=== PATIENT | female | born 1950 | race Caucasian/White ===

== ENCOUNTER → 2017-04-29 | Outpatient (CLI) | payer MEDICARE, OTHER, SELFPAY | PROVIDERS: Visit Provider Internal Medicine Adolescent Medicine | DX: I70.213 Atherosclerosis of native arteries of extremities with intermittent claudication, bilateral legs (principal) | CPT/HCPCS: 73706; Q9967 ==

== ENCOUNTER 2017-05-06 13:11 | Emergency (ER) | payer MEDICARE, OTHER, SELFPAY | END 2017-05-06 15:50 | disposition left against medical advice (07) | PROVIDERS: Emergency Provider Emergency Medicine; Family Provider Internal Medicine Adolescent Medicine; Visit Provider Emergency Medicine | DX: Z53.29 Procedure and treatment not carried out because of patient's decision for other reasons (principal) | CPT/HCPCS: 99211; 99282 ==

== ENCOUNTER 2017-07-09 15:29 | Emergency (ER) | payer MEDICARE, OTHER, SELFPAY ==
[2017-07-09 15:37] VITALS: BP 132/90; PULSE 103; RESP 22; TEMP 37.2; O2SAT 92; BMI 31.3
--- NOTE | 2017-07-09 15:41 | HMH.EDGENADL ---
ED Disposition Clinical Impression: Community acquired pneumonia Qualifiers: Laterality: left Lung location: lower lobe of lung Qualified Code(s): J18.1 - Lobar pneumonia, unspecified organism Disposition: Home, Self-Care Condition on Discharge: Good Instructions: DI for Pneumonia -- Adult Additional Instructions: Additional instructions for PNEUMONIA: See your physician as soon as possible for further evaluation. Return immediately if you have an uncontrollable fever greater than 102 degrees, difficulty breathing or shortness of breath, persistent vomiting, or severe chest pain. Prescriptions: Benzonatate [Tessalon Perle 100mg Cap] 100 mg PO TIDP PRN #20 cap PRN Reason: Cough levoFLOXacin [Levaquin 750mg tablet] 750 mg PO DAILY #5 tab Referrals: Enzo Meng MD [Primary Care Provider] - - Critical Care Critical Care Time: No Attestation: On , the high probability of a clinically significant, sudden or life threatening deterioration of the following system(s) required my full and direct attention, intervention and personal management. The time I documented below is in addition to time spent performing reported procedures but includes the following listed in this critical care notation. Medical Decision Making Vital Signs: 07/09/17 15:37 07/09/17 16:34 Temperature 99.0 F Temperature Source Oral Pulse Rate 101 H Pulse Rate [Right Brachial] 103 H Respiratory Rate 22 Blood Pressure [Right Arm] 132/90 Blood Pressure Mean [Right Arm] 104 Blood Pressure Source [Right Arm] Automatic Cuff Blood Pressure Position [Right Arm] Sitting 02 Sat by Pulse Oximetry 92 L Oxygen Delivery Method Room Air - Lab Data Lab Results 07/09/17 15:35: Influenza Type A Ag Negative, Influenza Type B Ag Negative Orders (Tests/Meds): ED MEDICATIONS Generic Name Dose Route Start Last Admin Trade Name Freq PRN Reason Stop Dose Admin Benzonatate 100 mg 07/09/17 17:45 Tessalon Perles 100mg Capsule PO 08/08/17 17:44 ONCE MARIEL Levofloxacin 500 mg 07/09/17 17:40 Levaquin 500mg Tab PO 07/09/17 17:41 ONCE ONE Protocol Discontinued Medications Generic Name Dose Route Start Last Admin Trade Name Freq PRN Reason Stop Dose Admin Albuterol Sulfate 2.5 mg 07/09/17 16:12 07/09/17 16:30 Albuterol 0.083% 2.5mg/3ml Neb IH 07/09/17 16:13 2.5 mg ONCE ONE Administration - Radiology Data #1 Image(s): Chest Image Reviewed: Yes I have reviewed radiologist's interpretation Chronic pulmonary parenchymal changes with atelectasis left lower lobe or fibrosis with possible superimposed infiltrate. - Josh Inquiry Pt receiving controlled substance: No Josh was queried for this patient: Yes Reference #:: [id number] Comment: 40 rxs. last rx 45 oxycodone 30 mg on 07/03/17. General Adult HPI - General Stated complaint: SOA, Cough, Hurting Mode of Arrival: Wheelchair Limitations: No Limitations Description of Symptoms (Recalled from ER Triage Doc. by RN): coughing my head off for two days - History of Present Illness HPI narrative: The patient says she has been sick for 2 days with sinus and a cough which has been productive of both clear and colored sputum. Low-grade fever. Feels congested. Denies history of asthma or COPD, denies smoking or tobacco use. She is on oxygen at home due to pulmonary hypertension. History of prior pneumonia. - Related Data Previous Rx's Medication Instructions Recorded Benzonatate [Tessalon Perle 100mg 100 mg PO TIDP PRN #20 cap 07/09/17 Cap] levoFLOXacin [Levaquin 750mg 750 mg PO DAILY #5 tab 07/09/17 tablet] Allergies Allergy/AdvReac Type Severity Reaction Status Date / Time butorphanol [From STADOL] Allergy Unknown VOMITING Verified 07/09/17 16:09 nortriptyline [NORTRIPTYLINE] Allergy Unknown NA-NAUSEA Verified 07/09/17 16:09 paroxetine [From PAXIL] Allergy Unknown VOMITING Verified 07/09/17 16
--- NOTE | 2017-07-09 15:48 | XR_ITS ---
XR chest 2V HISTORY: Shortness of breath with cough ITS.REASON: COUGH ORDERING PHYSICIAN: Eb Amato MD PATIENT AGE: 66 years COMPARISON: 01/19/2017 FINDINGS: There are low lung volumes with elevated left hemidiaphragm. Chronic changes are present in the left lung base consistent with atelectasis or fibrosis. In addition, there is some slight increased density left lung base medially compared to the previous exam and may be due to an area of atelectasis or infiltrate. Mild cardiomegaly without failure. Overall no significant change with no lobar consolidation or collapse. There are multiple vertebral plasty changes in the mid thoracic spine. There are bilateral humeral prosthesis and interpedicular screws with adjoining rods in the lumbar spine. IMPRESSION: Chronic pulmonary parenchymal changes with left lower lobe atelectasis or fibrosis with possible superimposed infiltrate in the left lung base.
[2017-07-09 16:34] VITALS: PULSE 101; PULSE 102
--- NOTE | 2017-07-09 16:57 | PC.NURSE ---
Pt has a nonproductive cough. Brought here from [facility] due to them closing and not able to get a CXR according to EMS.
[2017-07-09 17:45] VITALS: BP 132/80; PULSE 75; RESP 18; TEMP 36.7; O2SAT 98
== END 2017-07-09 17:45 | disposition home or self-care (01) ==
PROVIDERS: Emergency Provider Emergency Medicine; Family Provider Internal Medicine Adolescent Medicine; PCP Internal Medicine Adolescent Medicine
DX: J18.1 Lobar pneumonia, unspecified organism (principal)
CPT/HCPCS: 71046; 87275; 87276; 99281

== ENCOUNTER 2017-07-13 12:01 | Emergency (ER) | payer MEDICARE, OTHER, SELFPAY ==
[2017-07-13 12:11] VITALS: BP 143/71; PULSE 89; RESP 16; TEMP 37; O2SAT 97; BMI 31.3
--- NOTE | 2017-07-13 13:15 | HMH.EDSOB ---
ED Disposition Clinical Impression: Nasal obstruction, Deviated nasal septum, COPD (chronic obstructive pulmonary disease), Left against medical advice Disposition: Home, Self-Care Condition on Discharge: Fair Additional Instructions: 1- saine nasal spray. 2- flonase bid in each nostril. 3- Dr Meng in AM for neb machine. 4- see Dr morocho for nasal obstruction. 5- return for labs and x ray if needed. Referrals: Enzo Meng MD [Primary Care Provider] - - Critical Care Critical Care Time: No Attestation: On 07/13/17, the high probability of a clinically significant, sudden or life threatening deterioration of the following system(s) required my full and direct attention, intervention and personal management. The time I documented below is in addition to time spent performing reported procedures but includes the following listed in this critical care notation. Medical Decision Making Vital Signs: 07/13/17 12:11 Temperature 98.6 F Temperature Source Oral Pulse Rate [Right Radial] 89 Respiratory Rate 16 Blood Pressure [Right Arm] 143/71 Blood Pressure Mean [Right Arm] 95 Blood Pressure Source [Right Arm] Automatic Cuff Blood Pressure Position [Right Arm] Sitting 02 Sat by Pulse Oximetry 97 Oxygen Delivery Method Nasal Cannula - Josh Inquiry Pt receiving controlled substance: No Josh was queried for this patient: No Medical Decision Making Narrative: Discussed with the patient the need for chest x-rays and labs she declined, stated she is already on antibiotic. By the patient for a steroid injection and breathing treatment. He accepted the breathing treatment and declined a steroid injection for fear of increasing her sugar. She will follow-up with Dr. Garcia to obtain a nebulizer machine tomorrow. Follow-up with Dr. Morocho on her next deviated septum and nasal obstruction. She was advised for saline nasal spray and increase her Flonase use to twice a day. Resp/SOB HPI - General Chief Complaint: Shortness of Breath/Dyspnea Stated Complaint: SOB Mode of Arrival: Wheelchair Limitations: Physical Limitations Description of Symptoms (Recalled from ER Triage Doc. by RN): SOA SINCE LAST ER VISIT (07/07/17). STATES SHE WAS DIAGNOSED WITH A TOUCH OF PNEUMONIA. STATES THE LEVAQUIN AND PERRLES AREN'T HELPING - History of Present Illness 66 years old white female with a history of COPD oxygen dependent for the past 2 years she uses MDI inhalers. She was seen in the ED 2 days ago diagnosed with pneumonia and given antibiotic. She presented today with a chief complaint of unable to breathe, upon further questioning she reported that she has a nasal obstruction x 3 days and she cannot get in from her nose. She is taking quinolone for her pneumonia,she denies respiratory distress. Her breathing capacity has been the same as based. She does have a deviated septum she has seen Dr. Morocho in the past, she is using Flonase once a day in each nostril, not tried saline nasal spray. He does have a humidifier box attached to her oxygen at home. She denies having fever or chills she denies having productive sputum she denies having respiratory distress. Onset (ago): day(s) (3 days.) Context: recent illness Severity: mild Consistency/Duration: constant Relieving factors: oxygen Exacerbating factors: nothing Known history of: COPD Associated symptoms: other (see HPI.) - Related Data Previous Rx's Medication Instructions Recorded Benzonatate [Tessalon Perle 100mg 100 mg PO TIDP PRN #20 cap 07/09/17 Cap] levoFLOXacin [Levaquin 750mg 750 mg PO DAILY #5 tab 07/09/17 tablet] Allergies Allergy/AdvReac Type Severity Reaction Status Date / Time butorphanol [From STADOL] Allergy Unknown VOMITING Verified 07/13/17 12:21 nortriptyline [NORTRIPTYLINE] Allergy Unknown NA-NAUSEA Verified 07/13/17 12:21 paroxetine [From PAXIL] Allergy Unknown VOMITING Verified 07/13/17 12:21 Pen
--- NOTE | 2017-07-13 13:19 | ED_ITS ---
ED Disposition Clinical Impression: Nasal obstruction, Deviated nasal septum, COPD (chronic obstructive pulmonary disease), Left against medical advice Disposition: Home, Self-Care Condition on Discharge: Fair Additional Instructions: 1- saine nasal spray. 2- flonase bid in each nostril. 3- Dr Meng in AM for neb machine. 4- see Dr morocho for nasal obstruction. 5- return for labs and x ray if needed. Referrals: Enzo Meng MD [Primary Care Provider] - - Critical Care Critical Care Time: No Attestation: On 07/13/17, the high probability of a clinically significant, sudden or life threatening deterioration of the following system(s) required my full and direct attention, intervention and personal management. The time I documented below is in addition to time spent performing reported procedures but includes the following listed in this critical care notation. Medical Decision Making Vital Signs: 07/13/17 12:11 Temperature 98.6 F Temperature Source Oral Pulse Rate [Right Radial] 89 Respiratory Rate 16 Blood Pressure [Right Arm] 143/71 Blood Pressure Mean [Right Arm] 95 Blood Pressure Source [Right Arm] Automatic Cuff Blood Pressure Position [Right Arm] Sitting 02 Sat by Pulse Oximetry 97 Oxygen Delivery Method Nasal Cannula - Josh Inquiry Pt receiving controlled substance: No Josh was queried for this patient: No Medical Decision Making Narrative: Discussed with the patient the need for chest x-rays and labs she declined, stated she is already on antibiotic. By the patient for a steroid injection and breathing treatment. He accepted the breathing treatment and declined a steroid injection for fear of increasing her sugar. She will follow-up with Dr. Garcia to obtain a nebulizer machine tomorrow. Follow-up with Dr. Morocho on her next deviated septum and nasal obstruction. She was advised for saline nasal spray and increase her Flonase use to twice a day. Resp/SOB HPI - General Chief Complaint: Shortness of Breath/Dyspnea Stated Complaint: SOB Mode of Arrival: Wheelchair Limitations: Physical Limitations Description of Symptoms (Recalled from ER Triage Doc. by RN): SOA SINCE LAST ER VISIT (07/07/17). STATES SHE WAS DIAGNOSED WITH A TOUCH OF PNEUMONIA. STATES THE LEVAQUIN AND PERRLES AREN'T HELPING - History of Present Illness 66 years old white female with a history of COPD oxygen dependent for the past 2 years she uses MDI inhalers. She was seen in the ED 2 days ago diagnosed with pneumonia and given antibiotic. She presented today with a chief complaint of unable to breathe, upon further questioning she reported that she has a nasal obstruction x 3 days and she cannot get in from her nose. She is taking quinolone for her pneumonia,she denies respiratory distress. Her breathing capacity has been the same as based. She does have a deviated septum she has seen Dr. Morocho in the past, she is using Flonase once a day in each nostril, not tried saline nasal spray. He does have a humidifier box attached to her oxygen at home. She denies having fever or chills she denies having productive sputum she denies having respiratory distress. Onset (ago): day(s) (3 days.) Context: recent illness Severity: mild Consistency/Duration: constant Relieving factors: oxygen Exacerbating factors: nothing Known history of: COPD Associated symptoms: other (see HPI.) - Related Data Pr
[2017-07-13 13:34] VITALS: BP 143/71; PULSE 89; RESP 16; TEMP 37; O2SAT 2
[2017-07-13 14:17] VITALS: PULSE 81; PULSE 85
== END 2017-07-13 13:37 | disposition home or self-care (01) ==
PROVIDERS: Emergency Provider Emergency Medicine; Family Provider Internal Medicine Adolescent Medicine; PCP Internal Medicine Adolescent Medicine
DX: J34.89 Other specified disorders of nose and nasal sinuses (principal); J18.9 Pneumonia, unspecified organism; J34.2 Deviated nasal septum; J44.9 Chronic obstructive pulmonary disease, unspecified; Z99.81 Dependence on supplemental oxygen; E11.9 Type 2 diabetes mellitus without complications; Z88.0 Allergy status to penicillin; Z88.2 Allergy status to sulfonamides; Z88.8 Allergy status to other drugs, medicaments and biological substances; Z87.891 Personal history of nicotine dependence
CPT/HCPCS: 99281

== ENCOUNTER 2017-07-23 09:31 | Emergency (ER) | payer MEDICARE, OTHER, SELFPAY ==
[2017-07-23 09:45] VITALS: BP 130/83; PULSE 92; RESP 18; TEMP 36.6; O2SAT 95; BMI 31.3
--- NOTE | 2017-07-23 09:47 | HMH.EDGENADL ---
ED Disposition Clinical Impression: Chronic thoracic back pain Qualifiers: Back pain laterality: midline Qualified Code(s): M54.6 - Pain in thoracic spine; G89.29 - Other chronic pain Disposition: Home, Self-Care Condition on Discharge: Good Instructions: DI for Thoracic Back Pain Additional Instructions: Follow-up with your pain management physician and orthopedic physician. Continue current pain management regimen. Additional instructions for BACK PAIN: See your physician as soon as possible for further evaluation. Return immediately if back pain becomes intolerable, or if fever, numbness or weakness of your legs, loss of control of your bowels or bladder. Referrals: Enzo Meng MD [Primary Care Provider] - - Critical Care Critical Care Time: No Attestation: On , the high probability of a clinically significant, sudden or life threatening deterioration of the following system(s) required my full and direct attention, intervention and personal management. The time I documented below is in addition to time spent performing reported procedures but includes the following listed in this critical care notation. Medical Decision Making - Josh Inquiry Pt receiving controlled substance: Yes Josh was queried for this patient: Yes Reference #:: [id number] Risks and benefits of using a controlled substance: were not discussed with pt by me Comment: 41 rxs. last rxs 90 oxycodone 30mg on 07/18/17, morphine sulfate on 07/15/17 Vital Signs: 07/23/17 09:45 Temperature 97.8 F Temperature Source Temporal Artery Scan Pulse Rate [Right Brachial] 92 H Respiratory Rate 18 Blood Pressure [Right Arm] 130/83 Blood Pressure Mean [Right Arm] 98 Blood Pressure Position [Right Arm] Sitting 02 Sat by Pulse Oximetry 95 Orders (Tests/Meds): ED MEDICATIONS Discontinued Medications Generic Name Dose Route Start Last Admin Trade Name Freq PRN Reason Stop Dose Admin Morphine Sulfate 10 mg 07/23/17 11:05 Morphine 2mg/2ml Syringe IM 07/23/17 11:06 ONCE ONE Ondansetron HCl 4 mg 07/23/17 11:06 Zofran 4mg/2ml Vial IM 07/23/17 11:07 ONCE ONE Medical Decision Narrative: She wants something to get her through the day. She was wondering whether we could do an MRI to see if the discs had moved again. I advised her that x-rays will not show the discs. We could do an x-ray to check her bones and orthopedic hardware, but she declines this. General Adult HPI - General Stated complaint: back pain - History of Present Illness HPI narrative: The patient is known to me from numerous previous emergency department visits. She has chronic pain. She has a morphine pump and is on oxycodone. She sees an orthopedist and a pain physician. She says that she had surgery 2 years ago and has screws in her back. She says that her back and flaring up recently, but this morning it feels worse. No specific injury. She says that she wonders if her discs have slipped out again. Her pain is in her mid back. It increases with movement. No new numbness or weakness. She says that she could not get to [place] or contact her pain management doctor, so came here for treatment. - Related Data Home Medications Medication Instructions Recorded Confirmed ARIPiprazole [Abilify] 30 mg PO DIRECTED 07/23/17 07/23/17 Atorvastatin Calcium [Lipitor 20mg 0 mg PO DIRECTED 07/23/17 07/23/17 Tablet] Cyclobenzaprine HCl [Amrix] 30 mg PO DAILY 07/23/17 07/23/17 Insulin Lispro [Humalog Kwikpen 100 unit SQ DIRECTED 07/23/17 07/23/17 U-100] Linaclotide [Linzess] 145 mcg PO DAILY 07/23/17 07/23/17 Metformin HCl [Metformin 500mg 0 mg PO DIRECTED 07/23/17 07/23/17 Tablet] Oxycodone HCl [Oxycodone (IR) 15mg 15 mg PO TID 07/23/17 07/23/17 Tab] Pantoprazole Sodium [Protonix 40mg 40 mg PO DAILY 07/23/17 07/23/17 tablet] Temazepam [Restoril 15mg capsule] 0 mg * DIRECTED 07/23/17 03
[2017-07-23 12:28] VITALS: BP 147/83; PULSE 89; RESP 18; TEMP 36.1; O2SAT 98
== END 2017-07-23 12:30 | disposition home or self-care (01) ==
PROVIDERS: Emergency Provider Emergency Medicine; Family Provider Internal Medicine Adolescent Medicine; PCP Internal Medicine Adolescent Medicine
DX: M54.6 Pain in thoracic spine (principal); G89.29 Other chronic pain; E11.9 Type 2 diabetes mellitus without complications; Z79.84 Long term (current) use of oral hypoglycemic drugs; Z79.4 Long term (current) use of insulin; Z88.0 Allergy status to penicillin; Z88.2 Allergy status to sulfonamides; Z88.6 Allergy status to analgesic agent; Z96.642 Presence of left artificial hip joint
CPT/HCPCS: 90471; 96372; 99291; J2405

== ENCOUNTER 2017-08-01 21:44 | Emergency (ER) | payer MEDICARE, OTHER, SELFPAY ==
[2017-08-01 22:23] VITALS: BP 0/0; PULSE 0; RESP 0; TEMP -17.7; TEMP 0
== END 2017-08-01 22:24 | disposition left against medical advice (07) ==
PROVIDERS: Emergency Provider Emergency Medicine; Family Provider Internal Medicine Adolescent Medicine; PCP Internal Medicine Adolescent Medicine
DX: Z53.29 Procedure and treatment not carried out because of patient's decision for other reasons (principal)
CPT/HCPCS: G0463; 99211

== ENCOUNTER 2017-08-02 19:07 | Emergency (ER) | payer MEDICARE, OTHER, SELFPAY ==
[2017-08-02 19:14] VITALS: BP 150/55; PULSE 107; RESP 18; O2SAT 98; BMI 37.5
[2017-08-02 19:58] LABS: Basophils % 0.2 % (0.1-2.0); Eosinophils # 0.2 K/mm3 (0.0-0.4); Eosinophils % 1.6 % (0.1-12.0); Hematocrit 45.3 % (37.0-47.0); Hemoglobin 14.4 g/dL (12.2-16.2); Lymphocytes % 7.9 K/mm3 (10-50); Mean Corpuscular HGB Conc 31.9 g/dL (31.8-35.4); Mean Corpuscular Volume 90.9 fl (81-99); Mean Platelet Volume 7.3 fl (7.4-10.4); Monocytes # 0.6 K/mm3 (0.1-1.0); Monocytes % 4.6 % (1.7-9.3); Neutrophils # 10.3 K/mm3 (1.8-7.8); Neutrophils % 85.6 % (37.0-80.0); Platelet Count 217 K/mm3 (142-424); Red Blood Count 4.99 M/mm3 (4.20-5.40); White Blood Count 12.1 K/mm3 (4.8-10.8)
[2017-08-02 19:59] LABS: MANUAL DIFFERENTIAL MANUAL DIFFERENTIAL (MANUAL DIFF)
[2017-08-02 20:06] LABS: Alanine Aminotransferase 20 U/L (12-78); Albumin Level 3.7 gm/dL (3.4-5.0); Albumin/Globulin Ratio 0.8 (1.1-1.8); Alkaline Phosphatase 104 U/L (46-116); Amylase 38 U/L (25-125); Anion Gap 4.4 mEq/L (5-15); Aspartate Amino Transferase 13 U/L (15-37); Bilirubin,Total 0.5 mg/dL (0.2-1.0); Blood Urea Nitrogen 9 mg/dL (7-18); Calcium 8.8 mg/dL (8.5-10.1); Chloride 92 mmol/L (98-107); Creatinine Clearance Estimated 98 mL/min (0-300); Creatinine,Serum 0.56 mg/dL (0.55-1.02); Estimated Glomerular Filt Rate 109 ml/min (>60); GFR (African American) 132 ML/MIN (>60); Globulin 4.6 gm/dl (1.3-3.2); Glucose 235 mg/dL (74-106); Lipase 71 u/L (73-393); Potassium 3.4 mmoL/L (3.5-5.1); Sodium 138 mmol/L (136-145); Total Protein,Serum 8.3 gm/dL (6.4-8.2)
[2017-08-02 20:07] LABS: Hypochromasia 2+; Lymphocytes % 8 % (10-50); Monocytes % 3 % (2-9); Neutrophils % 78 % (42-76); Platelet Estimate Normal; Total Cells Counted 100
[2017-08-02 20:10] LABS: Carbon Dioxide 45 mmol/L (21.0-32.0)
--- NOTE | 2017-08-02 21:09 | HMH.EDNVD ---
ED Disposition Clinical Impression: Gastroenteritis Disposition: Home, Self-Care Condition on Discharge: Good Instructions: DI for Nausea -- Adult Additional Instructions: fluids and see pcp for follow up Referrals: Enzo Meng MD [Primary Care Provider] - - Critical Care Critical Care Time: No Attestation: On 08/02/17, the high probability of a clinically significant, sudden or life threatening deterioration of the following system(s) required my full and direct attention, intervention and personal management. The time I documented below is in addition to time spent performing reported procedures but includes the following listed in this critical care notation. Medical Decision Making - Medical Records Medical records reviewed: Yes: I reviewed the patient's medical records. - Josh Inquiry Pt receiving controlled substance: No Vital Signs: 08/02/17 19:14 Temperature Source Oral Pulse Rate [Right Brachial] 107 H Respiratory Rate 18 Blood Pressure [Right Arm] 150/55 Blood Pressure Mean [Right Arm] 86 Blood Pressure Source [Right Arm] Automatic Cuff Blood Pressure Position [Right Arm] Sitting 02 Sat by Pulse Oximetry 98 Oxygen Delivery Method Room Air - Lab Data Lab results reviewed: Yes: I reviewed the patient's lab results. Lab Results 08/02/17 19:20: WBC 12.1 H, RBC 4.99, Hgb 14.4, Hct 45.3, MCV 90.9, MCH 29.0, MCHC 31.9, RDW 14.0, Plt Count 217, MPV 7.3 L, Neut % (Auto) 85.6 H, Lymph % (Auto) 7.9 L, [place] % (Auto) 4.6, Eos % (Auto) 1.6, Baso % (Auto) 0.2, Neut # (Auto) 10.3 H, Lymph # (Auto) 1.0, [place] # (Auto) 0.6, Eos # (Auto) 0.2, Baso # (Auto) 0.0, Total Counted 100, Neutrophils % (Manual) 78 H, Band Neutrophils % 11.0 H, Lymphocytes % (Manual) 8 L, Monocytes % (Manual) 3, Platelet Estimate Normal, Hypochromasia 2+ 08/02/17 19:20: Sodium 138, Potassium 3.4 L, Chloride 92 L, Carbon Dioxide 45 H*, Anion Gap 4.4 L, BUN 9, Creatinine 0.56, Estimated Creat Clear 98, Estimated GFR 109, Est GFR ( Amer) 132, Glucose 235 H, Calcium 8.8, Total Bilirubin 0.5, AST 13 L, ALT 20, Alkaline Phosphatase 104, Total Protein 8.3 H, Albumin 3.7, Globulin 4.6 H, Albumin/Globulin Ratio 0.8 L, Amylase 38, Lipase 71 L Result diagrams: 08/02/17 19:20 08/02/17 19:20 Orders (Tests/Meds): ED MEDICATIONS Discontinued Medications Generic Name Dose Route Start Last Admin Trade Name Freq PRN Reason Stop Dose Admin Sodium Chloride 1,000 mls @ 999 mls/hr 08/02/17 19:45 08/02/17 19:49 Sod Chlor 0.9% 1000ml Bag IV 08/02/17 20:45 999 mls/hr .Q1H1M MARIEL Administration Ondansetron HCl 4 mg 08/02/17 19:43 08/02/17 19:49 Zofran 4mg/2ml Vial IV 08/02/17 19:44 4 mg ONCE ONE Administration Nausea/Vomiting/Diarrhea HPI - General Chief complaint: Nausea/Vomiting/Diarrhea Stated complaint: Vomiting Time Seen by Provider: 08/02/17 21:09 Mode of Arrival: Wheelchair Source of Information: Patient, Spouse, Medical Record Limitations: No Limitations Description of Symptoms (Recalled from ER Triage Doc. by RN): PT STATES SUDDEN ONSET OF PAIN TO BELLY AND VOMITING - History of Present Illness HPI Narrative: pt with vomiting and nausea with diarrhea w/o fever or blood and no recent abx or contacts MD complaint: nausea, vomiting, diarrhea Onset (ago): hour(s) Associated Abdominal Pain: Yes Location of pain: epigastric Severity: moderate - Related Data Home Medications Medication Instructions Recorded Confirmed ARIPiprazole [Abilify] 30 mg PO DIRECTED 07/23/17 07/23/17 Atorvastatin Calcium [Lipitor 20mg 0 mg PO DIRECTED 07/23/17 07/23/17 Tablet] Cyclobenzaprine HCl [Amrix] 30 mg PO DAILY 07/23/17 07/23/17 Insulin Lispro [Humalog Kwikpen 100 unit SQ DIRECTED 07/23/17 07/23/17 U-100] Linaclotide [Linzess] 145 mcg PO DAILY 07/23/17 07/23/17 Metformin HCl [Metformin 500mg 0 mg PO DIRECTED 07/23/17 07/23/17 Tablet] Oxycodone HCl [Oxycodone (IR) 15mg 15 m
--- NOTE | 2017-08-02 21:12 | ED_ITS ---
ED Disposition Clinical Impression: Gastroenteritis Disposition: Home, Self-Care Condition on Discharge: Good Instructions: DI for Nausea -- Adult Additional Instructions: fluids and see pcp for follow up Referrals: Enzo Meng MD [Primary Care Provider] - - Critical Care Critical Care Time: No Attestation: On 08/02/17, the high probability of a clinically significant, sudden or life threatening deterioration of the following system(s) required my full and direct attention, intervention and personal management. The time I documented below is in addition to time spent performing reported procedures but includes the following listed in this critical care notation. Medical Decision Making - Medical Records Medical records reviewed: Yes: I reviewed the patient's medical records. - Josh Inquiry Pt receiving controlled substance: No Vital Signs: 08/02/17 19:14 Temperature Source Oral Pulse Rate [Right Brachial] 107 H Respiratory Rate 18 Blood Pressure [Right Arm] 150/55 Blood Pressure Mean [Right Arm] 86 Blood Pressure Source [Right Arm] Automatic Cuff Blood Pressure Position [Right Arm] Sitting 02 Sat by Pulse Oximetry 98 Oxygen Delivery Method Room Air - Lab Data Lab results reviewed: Yes: I reviewed the patient's lab results. Lab Results 08/02/17 19:20: WBC 12.1 H, RBC 4.99, Hgb 14.4, Hct 45.3, MCV 90.9, MCH 29.0, MCHC 31.9, RDW 14.0, Plt Count 217, MPV 7.3 L, Neut % (Auto) 85.6 H, Lymph % ( Auto) 7.9 L, [place] % (Auto) 4.6, Eos % (Auto) 1.6, Baso % (Auto) 0.2, Neut # ( Auto) 10.3 H, Lymph # (Auto) 1.0, [place] # (Auto) 0.6, Eos # (Auto) 0.2, Baso # ( Auto) 0.0, Total Counted 100, Neutrophils % (Manual) 78 H, Band Neutrophils % 11.0 H, Lymphocytes % (Manual) 8 L, Monocytes % (Manual) 3, Platelet Estimate Normal, Hypochromasia 2+ 08/02/17 19:20: Sodium 138, Potassium 3.4 L, Chloride 92 L, Carbon Dioxide 45 H* , Anion Gap 4.4 L, BUN 9, Creatinine 0.56, Estimated Creat Clear 98, Estimated GFR 109, Est GFR ( Amer) 132, Glucose 235 H, Calcium 8.8, Total Bilirubin 0.5, AST 13 L, ALT 20, Alkaline Phosphatase 104, Total Protein 8.3 H, Albumin 3.7, Globulin 4.6 H, Albumin/Globulin Ratio 0.8 L, Amylase 38, Lipase 71 L Result diagrams: 08/02/17 19:20 08/02/17 19:20 Orders (Tests/Meds): ED MEDICATIONS Discontinued Medications Generic Name Dose Route Start Last Admin Trade Name Freq PRN Reason Stop Dose Admin Sodium Chloride 1,000 mls @ 999 mls/hr 08/02/17 19:45 08/02/17 19:49 Sod Chlor 0.9% 1000ml Bag IV 08/02/17 20:45 999 mls/hr .Q1H1M MARIEL Administration Ondansetron HCl 4 mg 08/02/17 19:43 08/02/17 19:49 Zofran 4mg/2ml Vial IV 08/02/17 19:44 4 mg ONCE ONE Administration Nausea/Vomiting/Diarrhea HPI - General Chief complaint: Nausea/Vomiting/Diarrhea Stated complaint: Vomiting Time Seen by Provider: 08/02/17 21:09 Mode of Arrival: Wheelchair Source of Information: Patient, Spouse, Medical Record Limitations: No Limitations Description of Symptoms (Recalled from ER Triage Doc. by RN): PT STATES SUDDEN ONSET OF PAIN TO BELLY AND VOMITING - History of Present Illness HPI Narrative: pt with vomiting and nausea with diarrhea w/o fever or blood and no recent abx or contacts MD complaint: nausea, vomiting, diarrhea Onset (ago): hour(s) Associated Abdominal Pain: Yes Locati
[2017-08-02 21:22] VITALS: BP 148/70; PULSE 80; RESP 18; TEMP 37; O2SAT 98
== END 2017-08-02 21:23 | disposition home or self-care (01) ==
PROVIDERS: Emergency Provider Emergency Medicine; Family Provider Internal Medicine Adolescent Medicine; PCP Internal Medicine Adolescent Medicine
DX: K52.9 Noninfective gastroenteritis and colitis, unspecified (principal); E11.9 Type 2 diabetes mellitus without complications; Z79.899 Other long term (current) drug therapy; Z79.4 Long term (current) use of insulin; Z79.891 Long term (current) use of opiate analgesic; Z88.0 Allergy status to penicillin; Z88.2 Allergy status to sulfonamides; Z88.8 Allergy status to other drugs, medicaments and biological substances; Z91.09 Other allergy status, other than to drugs and biological substances
CPT/HCPCS: 80053; 82150; 83690; 85007; 85025; 96365; 96375; 99282; J2405

== ENCOUNTER → 2017-08-08 14:31 | Outpatient (CLI) | payer MEDICARE, OTHER, SELFPAY ==
[2017-08-08 14:37] LABS: Microscopic, Urine URINE MICROSCOPIC (MICROSCOPIC)
--- NOTE | 2017-08-08 15:01 | XR_ITS ---
XR chest 2V HISTORY: ITS.REASON: CHEST PAIN ORDERING PHYSICIAN: Kendrick Britt PATIENT AGE: 66 years COMPARISON: 07/09/2017 FINDINGS: There are low lung volumes. There is cardiomegaly. There are multiple levels of vertebroplasty as before. Previously noted infiltrate in the left lower lobe has shown some improvement but there is increasing atelectatic change in the left lower lobe. Atelectasis is also increasing in the right lung base. There are bilateral shoulder replacements. IMPRESSION: Increasing bibasilar atelectasis. Left lower lobe pneumonia has shown some improvement. Cardiomegaly without failure
[2017-08-08 15:05] LABS: Activated Partial Thrombo Time 27.8 seconds (23.6-34.0); INR 0.95 (0.9-1.1); Prothrombin Time 10.3 seconds (9.4-11.8)
[2017-08-08 15:09] LABS: Alanine Aminotransferase 17 U/L (12-78); Albumin Level 3.2 gm/dL (3.4-5.0); Albumin/Globulin Ratio 0.8 (1.1-1.8); Alkaline Phosphatase 91 U/L (46-116); Anion Gap 5.7 mEq/L (5-15); Aspartate Amino Transferase 10 U/L (15-37); Bilirubin,Total 0.3 mg/dL (0.2-1.0); Blood Urea Nitrogen 9 mg/dL (7-18); Calcium 8.6 mg/dL (8.5-10.1); Chloride 96 mmol/L (98-107); Creatinine,Serum 0.55 mg/dL (0.55-1.02); Estimated Glomerular Filt Rate 111 ml/min (>60); GFR (African American) 135 ML/MIN (>60); Globulin 4.1 gm/dl (1.3-3.2); Glucose 368 mg/dL (74-106); Potassium 4.7 mmoL/L (3.5-5.1); Sodium 139 mmol/L (136-145); Total Protein,Serum 7.3 gm/dL (6.4-8.2)
[2017-08-08 15:19] LABS: Carbon Dioxide 42 mmol/L (21.0-32.0)
[2017-08-08 15:38] LABS: Basophils % 0.2 % (0.1-2.0); Eosinophils # 0.2 K/mm3 (0.0-0.4); Hematocrit 40.3 % (37.0-47.0); Hemoglobin 12.1 g/dL (12.2-16.2); Lymphocytes # 0.9 K/mm3 (0.7-4.5); Lymphocytes % 14.4 K/mm3 (10-50); Mean Corpuscular HGB Conc 30.1 g/dL (31.8-35.4); Mean Corpuscular Hemoglobin 28.3 pg (27.0-31.2); Mean Corpuscular Volume 94.1 fl (81-99); Mean Platelet Volume 7.7 fl (7.4-10.4); Monocytes # 0.3 K/mm3 (0.1-1.0); Monocytes % 5.2 % (1.7-9.3); Neutrophils # 4.8 K/mm3 (1.8-7.8); Neutrophils % 77.1 % (37.0-80.0); Platelet Count 222 K/mm3 (142-424); Red Blood Count 4.28 M/mm3 (4.20-5.40); Red Cell Distribution Width 14.2 % (11.5-17.5); White Blood Count 6.2 K/mm3 (4.8-10.8)
[2017-08-08 15:40] LABS: Appearance,Urine CLEAR (Clear); Bilirubin,Urine Negative (Negative); Blood, Urine Negative (Negative); Color,Urine YELLOW (Yellow); Glucose,Urine (UA) 2+ (Negative); Ketones,Urine Negative (Negative); Leukocyte Esterase,Urine Negative (Negative); Nitrate,Urine Negative (Negative); Protein,Urine Negative (Negative); Urobilinogen,Urine 0.2 EU/dl (0.2)
[2017-08-08 16:24] LABS: Bacteria,Urine 1+ /lpf; RBC,Urine Occasional #/hpf (0-3); Squamous Epithelial Cell,Urine 20-50 #/hpf (0-5)
== END ==
PROVIDERS: Visit Provider Orthopaedic Surgery
DX: R79.1 Abnormal coagulation profile (principal); R68.89 Other general symptoms and signs; R79.89 Other specified abnormal findings of blood chemistry; R82.90 Unspecified abnormal findings in urine; R07.9 Chest pain, unspecified; Z01.818 Encounter for other preprocedural examination
CPT/HCPCS: 36415; 71046; 80053; 81001; 85025; 85610; 85730; 93005

== ENCOUNTER → 2017-08-15 14:51 | Outpatient (CLI) | payer MEDICARE, OTHER, SELFPAY ==
[2017-08-15 15:19] LABS: Blood Urea Nitrogen 10 mg/dL (7-18); Creatinine,Serum 0.43 mg/dL (0.55-1.02); Estimated Glomerular Filt Rate 148 ml/min (>60); GFR (African American) 179 ML/MIN (>60)
== END ==
PROVIDERS: Visit Provider Internal Medicine Adolescent Medicine
DX: Z01.818 Encounter for other preprocedural examination (principal)
CPT/HCPCS: 36415; 82565; 84520

== ENCOUNTER → 2017-08-21 09:05 | Outpatient (CLI) | payer MEDICARE, OTHER, SELFPAY ==
--- NOTE | 2017-08-21 09:17 | CT_ITS ---
CT chest w con HISTORY: ITS.REASON: CHRONIC PNEUMONIA,COUGH ORDERING PHYSICIAN: Clau Rangel PATIENT AGE: 66 years TECHNIQUE: Axial images obtained following the administration of 75 mL of Isovue 370 . Sagittal, and coronal reformatted images are also generated and reviewed. All CT scans at the facility use one or more dose reduction, viz: automated exposure control; ma/kV adjustment per patient size (including targeted exams where dose is matched to indication; i.e. head); or iterative reconstruction technique. COMPARISON: 08/08/2017 FINDINGS: No mediastinal or hilar mass or adenopathy. Normal heart size without evidence of pericardial effusion. Old granulomatous disease with scattered calcified granulomas and a few calcified hilar lymph nodes on the right. There are atelectatic changes in the right lower lobe inferiorly and in the left lung base. Left hemidiaphragm is slightly elevated. No central obstructing lesion evident. There are bilateral humeral prosthesis with artifact. Postsurgical changes are present in the lumbar spine with multilevel vertebroplasty at the thoracic spine. Epidural catheter present in the lumbar region. IMPRESSION: 1. Bilateral lower lobe atelectasis without obvious central obstructing lesion. 2. Postsurgical change of the lumbar spine with multilevel thoracic vertebroplasty
--- NOTE | 2017-08-21 10:25 | HMH.ITSHM ---
PROTONIX, METFORMIN, LINZESS, INSULIN LISPRO, VISTARIL, AMRIX, LIPITOR, ABILIFY, RESTORIL, OXYCODONE HCL
== END ==
PROVIDERS: Family Provider Internal Medicine Adolescent Medicine; PCP Internal Medicine Adolescent Medicine; Visit Provider Nurse Practitioner Family
DX: R05 Cough (principal)
CPT/HCPCS: 71260; Q9967

== ENCOUNTER → 2017-08-30 11:59 | Outpatient (CLI) | payer MEDICARE, OTHER, SELFPAY ==
[2017-08-30 12:22] LABS: Basophils % 0.3 % (0.1-2.0); Eosinophils # 0.1 K/mm3 (0.0-0.4); Eosinophils % 1.9 % (0.1-12.0); Hematocrit 39.7 % (37.0-47.0); Hemoglobin 12.5 g/dL (12.2-16.2); Lymphocytes # 0.7 K/mm3 (0.7-4.5); Lymphocytes % 10.7 K/mm3 (10-50); Mean Corpuscular HGB Conc 31.6 g/dL (31.8-35.4); Mean Corpuscular Hemoglobin 29.1 pg (27.0-31.2); Mean Corpuscular Volume 92.1 fl (81-99); Mean Platelet Volume 7.6 fl (7.4-10.4); Monocytes # 0.3 K/mm3 (0.1-1.0); Monocytes % 4.9 % (1.7-9.3); Neutrophils # 5.1 K/mm3 (1.8-7.8); Neutrophils % 82.3 % (37.0-80.0); Platelet Count 170 K/mm3 (142-424); Red Blood Count 4.31 M/mm3 (4.20-5.40); Red Cell Distribution Width 14.1 % (11.5-17.5); White Blood Count 6.2 K/mm3 (4.8-10.8)
[2017-08-30 13:28] LABS: Hemoglobin A1C 7.1 % (0.0-7.0)
[2017-08-30 13:35] LABS: Anion Gap 8.4 mEq/L (5-15); Blood Urea Nitrogen 5 mg/dL (7-18); Chloride 97 mmol/L (98-107); Creatinine,Serum 0.44 mg/dL (0.55-1.02); Estimated Glomerular Filt Rate 144 ml/min (>60); GFR (African American) 174 ML/MIN (>60); Glucose 247 mg/dL (74-106); Potassium 4.4 mmoL/L (3.5-5.1); Sodium 142 mmol/L (136-145)
[2017-08-30 13:39] LABS: Carbon Dioxide 41 mmol/L (21.0-32.0)
== END ==
PROVIDERS: Visit Provider Nurse Practitioner Family
DX: R06.89 Other abnormalities of breathing (principal); E11.9 Type 2 diabetes mellitus without complications
CPT/HCPCS: 36415; 80048; 83036; 85025

== ENCOUNTER → 2018-01-23 12:40 | Outpatient (CLI) | payer MEDICARE, OTHER, SELFPAY ==
[2018-01-23 12:54] LABS: Microscopic, Urine URINE MICROSCOPIC (MICROSCOPIC)
--- NOTE | 2018-01-23 13:34 | XR_ITS ---
XR chest 2V HISTORY: ITS.REASON: HTN ORDERING PHYSICIAN: Kendrick Britt PATIENT AGE: 67 years COMPARISON: PA and lateral chest 12/21/2017 Findings: This is a somewhat poor inspiration. There is discoid atelectasis and/or post inflammatory scarring at the left base similar to the previous study. Otherwise the lung hills are clear of infiltrate. There is stable moderate generalized cardio megaly without failure. Again noted are multilevel vertebral plasties midthoracic spine. There are bilateral total shoulder prosthesis noted. IMPRESSION: Stable generalized Herve megaly and table scarring or atelectasis at the left base, doubt acute chest pathology
--- NOTE | 2018-01-23 13:36 | XR_ITS ---
XR foot RT min 3V HISTORY: ITS.REASON: RT FOOT PAIN ORDERING PHYSICIAN: Kendrick Britt PATIENT AGE: 67 years COMPARISON: None FINDINGS: There is prominent generalized osteopenia. The tarsal bones metatarsals and phalanges appear intact with no evidence of acute fracture. There is minor cortical thickening of the base of the second metatarsal possibly due to old healed fracture. There is somewhat flattened plantar arch. There is spurs of the calcaneus at insertion of plantar tendon and Achilles tendon. There is mild diffuse soft tissue swelling of the forefoot. IMPRESSION: Generalized osteopenia, pes planus and calcaneal spurs as noted
[2018-01-23 13:45] LABS: Basophils % 0.4 % (0.1-2.0); Eosinophils # 0.1 K/mm3 (0.0-0.4); Eosinophils % 0.8 % (0.1-12.0); Hematocrit 40.4 % (37.0-47.0); Hemoglobin 13.9 g/dL (12.2-16.2); Lymphocytes # 0.9 K/mm3 (0.7-4.5); Mean Corpuscular HGB Conc 34.4 g/dL (31.8-35.4); Mean Corpuscular Hemoglobin 29.3 pg (27.0-31.2); Mean Corpuscular Volume 85.2 fl (81-99); Mean Platelet Volume 6.7 fl (7.4-10.4); Monocytes # 0.5 K/mm3 (0.1-1.0); Monocytes % 5.5 % (1.7-9.3); Neutrophils # 7.7 K/mm3 (1.8-7.8); Neutrophils % 83.3 % (37.0-80.0); Platelet Count 308 K/mm3 (142-424); Red Blood Count 4.74 M/mm3 (4.20-5.40); Red Cell Distribution Width 14.7 % (11.5-17.5); White Blood Count 9.2 K/mm3 (4.8-10.8)
[2018-01-23 13:48] LABS: Activated Partial Thrombo Time 31.4 seconds (23.6-34.0); INR 0.97 (0.9-1.1)
[2018-01-23 14:22] LABS: Appearance,Urine CLEAR (Clear); Bilirubin,Urine Negative (Negative); Blood, Urine Negative (Negative); Color,Urine YELLOW (Yellow); Glucose,Urine (UA) Negative (Negative); Ketones,Urine Negative (Negative); Leukocyte Esterase,Urine Negative (Negative); Nitrate,Urine Negative (Negative); Protein,Urine Negative (Negative)
[2018-01-23 14:57] LABS: Bacteria,Urine Trace /lpf
[2018-01-23 16:52] LABS: Alanine Aminotransferase 29 U/L (12-78); Albumin Level 3.7 gm/dL (3.4-5.0); Albumin/Globulin Ratio 0.9 (1.1-1.8); Alkaline Phosphatase 93 U/L (46-116); Aspartate Amino Transferase 16 U/L (15-37); Bilirubin,Total 0.6 mg/dL (0.2-1.0); Blood Urea Nitrogen 5 mg/dL (7-18); Calcium 8.9 mg/dL (8.5-10.1); Chloride 86 mmol/L (98-107); Creatinine,Serum 0.46 mg/dL (0.55-1.02); Estimated Glomerular Filt Rate 136 ml/min (>60); GFR (African American) 165 ML/MIN (>60); Globulin 4.3 gm/dl (1.3-3.2); Glucose 151 mg/dL (74-106); Sodium 133 mmol/L (136-145)
[2018-01-23 17:01] LABS: Carbon Dioxide 42 mmol/L (21.0-32.0)
== END ==
PROVIDERS: PCP Internal Medicine Adolescent Medicine; Visit Provider Orthopaedic Surgery
DX: Z79.01 Long term (current) use of anticoagulants (principal); Z01.818 Encounter for other preprocedural examination
CPT/HCPCS: 36415; 71046; 73630; 80053; 81001; 85025; 85610; 85730

== ENCOUNTER → 2018-02-23 16:19 | Outpatient (CLI) | payer MEDICARE, OTHER, SELFPAY ==
[2018-02-23 16:49] LABS: Basophils % 0.3 % (0.1-2.0); Eosinophils # 0.3 K/mm3 (0.0-0.4); Eosinophils % 3.7 % (0.1-12.0); Hematocrit 37.3 % (37.0-47.0); Hemoglobin 11.6 g/dL (12.2-16.2); Lymphocytes # 1.1 K/mm3 (0.7-4.5); Lymphocytes % 16.2 K/mm3 (10-50); Mean Corpuscular HGB Conc 31.2 g/dL (31.8-35.4); Mean Corpuscular Hemoglobin 28.3 pg (27.0-31.2); Mean Corpuscular Volume 90.5 fl (81-99); Mean Platelet Volume 7.5 fl (7.4-10.4); Monocytes # 0.4 K/mm3 (0.1-1.0); Monocytes % 6.4 % (1.7-9.3); Neutrophils % 73.4 % (37.0-80.0); Platelet Count 213 K/mm3 (142-424); Red Blood Count 4.12 M/mm3 (4.20-5.40); Red Cell Distribution Width 14.7 % (11.5-17.5); White Blood Count 6.8 K/mm3 (4.8-10.8)
[2018-02-23 17:26] LABS: Alanine Aminotransferase 24 U/L (12-78); Albumin Level 3.2 gm/dL (3.4-5.0); Albumin/Globulin Ratio 0.8 (1.1-1.8); Alkaline Phosphatase 99 U/L (46-116); Aspartate Amino Transferase 13 U/L (15-37); Bilirubin,Total 0.6 mg/dL (0.2-1.0); Blood Urea Nitrogen 8 mg/dL (7-18); Calcium 8.1 mg/dL (8.5-10.1); Chloride 97 mmol/L (98-107); Creatinine,Serum 0.59 mg/dL (0.55-1.02); Estimated Glomerular Filt Rate 102 ml/min (>60); GFR (African American) 124 ML/MIN (>60); Globulin 3.8 gm/dl (1.3-3.2); Glucose 117 mg/dL (74-106); Sodium 142 mmol/L (136-145)
[2018-02-23 17:45] LABS: Carbon Dioxide 47 mmol/L (21.0-32.0)
== END ==
PROVIDERS: Family Provider Internal Medicine Adolescent Medicine; PCP Internal Medicine Adolescent Medicine; Visit Provider Otolaryngology
DX: Z01.818 Encounter for other preprocedural examination (principal); L98.9 Disorder of the skin and subcutaneous tissue, unspecified
CPT/HCPCS: 36415; 80053; 85025; 93005

== ENCOUNTER → 2018-05-07 12:17 | Outpatient (CLI) | payer MEDICARE, OTHER, SELFPAY ==
[2018-05-07 12:26] LABS: Microscopic, Urine URINE MICROSCOPIC (MICROSCOPIC)
--- NOTE | 2018-05-07 12:46 | XR_ITS ---
XR chest 2V HISTORY: Pulmonary hypertension ITS.REASON: HTN, DMII ORDERING PHYSICIAN: Kendrick Britt PATIENT AGE: 67 years Technique: PA and lateral chest COMPARISON: 01/23/2018 and 12/21/2017 FINDINGS: Elevation left hemidiaphragm with dense linear scarring and atelectasis above the elevated left hemidiaphragm. Similar findings are seen previously but with more pronounced linear scarring/atelectasis seen today at left base posteriorly. The left mid and upper lung hills clear and unchanged. Right lung appears stable. Trace thickening at the fissure. The generous hilar regions bilaterally appear stable and may reflect underlying pulmonary hypertension is suggested by provided history. Consider follow-up CT chest to further evaluate if chest symptoms present or persists The patient has bilateral shoulder replacements. I questioned that the right shoulder glenoid component may be somewhat rotated. Requires shoulder films to better evaluate. Also possible resection distal right clavicle or widening at the AC joint, Limited views of these features on current CXR. The patient is multilevel vertebroplasty. These involve 5 sequential mid thoracic vertebral bodies. Mild wedging and compression fractures seen at each of these vertebral. Overall stable appearance since January. There is also fusion seen at the upper lumbar spine. Mild cardiomegaly. Normal pulmonary vascularity no CHF. IMPRESSION Elevation left hemidiaphragm, with additional dense linear scarring/atelectasis at left lung base.- This latter feature is slightly more pronounced today than previous CXR from January.. Otherwise no new or acute acute findings in the chest. No focal pneumonia. No pleural effusion. Multilevel kyphoplasty again noted Bilateral shoulder replacements. Consider follow-up CT chest to further evaluate if chest symptoms present or persists
[2018-05-07 12:59] LABS: Appearance,Urine CLEAR (Clear); Bilirubin,Urine Negative (Negative); Blood, Urine Negative (Negative); Color,Urine YELLOW (Yellow); Glucose,Urine (UA) Negative (Negative); Ketones,Urine Negative (Negative); Leukocyte Esterase,Urine Negative (Negative); Nitrate,Urine Negative (Negative); Protein,Urine Negative (Negative); Urobilinogen,Urine 0.2 EU/dl (0.2)
[2018-05-07 13:06] LABS: Activated Partial Thrombo Time 27.8 seconds (23.6-34.0); INR 0.94 (0.9-1.1); Prothrombin Time 9.7 seconds (9.4-11.8)
[2018-05-07 13:07] LABS: Bacteria,Urine Trace /lpf
[2018-05-07 13:11] LABS: Hemoglobin A1C 6.4 % (0.0-7.0)
[2018-05-07 13:50] LABS: Basophils % 0.1 % (0.1-2.0); Eosinophils # 0.2 K/mm3 (0.0-0.4); Eosinophils % 2.7 % (0.1-12.0); Hematocrit 40.2 % (37.0-47.0); Hemoglobin 12.8 g/dL (12.2-16.2); Lymphocytes % 11.4 % (10-50); Mean Corpuscular HGB Conc 31.8 g/dL (31.8-35.4); Mean Corpuscular Hemoglobin 27.7 pg (27.0-31.2); Mean Corpuscular Volume 87.1 fl (81-99); Mean Platelet Volume 7.5 fl (7.4-10.4); Monocytes # 0.4 K/mm3 (0.1-1.0); Monocytes % 4.8 % (1.7-9.3); Neutrophils # 6.9 K/mm3 (1.8-7.8); Neutrophils % 80.9 % (37.0-80.0); Platelet Count 195 K/mm3 (142-424); Red Blood Count 4.62 M/mm3 (4.20-5.40); Red Cell Distribution Width 14.4 % (11.5-17.5); White Blood Count 8.5 K/mm3 (4.8-10.8)
[2018-05-07 14:16] LABS: Alanine Aminotransferase 21 U/L (12-78); Albumin Level 3.2 gm/dL (3.4-5.0); Albumin/Globulin Ratio 0.9 (1.1-1.8); Alkaline Phosphatase 81 U/L (46-116); Aspartate Amino Transferase 15 U/L (15-37); Bilirubin,Total 0.5 mg/dL (0.2-1.0); Blood Urea Nitrogen 7 mg/dL (7-18); Calcium 7.9 mg/dL (8.5-10.1); Chloride 86 mmol/L (98-107); Creatinine,Serum 0.53 mg/dL (0.55-1.02); Estimated Glomerular Filt Rate 116 ml/min (>60); GFR (African American) 140 ML/MIN (>60); Globulin 3.6 gm/dl (1.3-3.2); Glucose 257 mg/dL (74-106); Potassium 3.2 mmoL/L (3.5-5.1); Sodium 135 mmol/L (136-145); Total Protein,Serum 6.8 gm/dL (6.4-8.2)
[2018-05-07 14:27] LABS: Anion Gap 6.2 mEq/L (5-15); Carbon Dioxide 46 mmol/L (21.0-32.0)
== END ==
PROVIDERS: PCP Nurse Practitioner Family; Visit Provider Nurse Practitioner Family
DX: Z01.818 Encounter for other preprocedural examination (principal); M25.9 Joint disorder, unspecified; E11.9 Type 2 diabetes mellitus without complications; Z51.81 Encounter for therapeutic drug level monitoring
CPT/HCPCS: 36415; 71046; 80053; 81001; 83036; 85025; 85610; 85730

== ENCOUNTER → 2018-06-02 14:28 | Outpatient (CLI) | payer MEDICARE, BC, SELFPAY ==
[2018-06-02 18:23] LABS: Adenovirus F 40/41, stool Not Detected (NotDetected); Astrovirus Not Detected (NotDetected); Campylobacter Not Detected (NotDetected); Clostridium Difficile A/B, PCR Not Detected (NotDetected); Cryptosporidium Not Detected (NotDetected); Cyclospora Cayetanesis Not Detected (NotDetected); Entamoeba histolytica Not Detected (NotDetected); Enteroaggregative E coli Not Detected (NotDetected); Enteropathogenic E coli Not Detected (NotDetected); Enterotoxigenic E coli Not Detected (NotDetected); Giardia lamblia Not Detected (NotDetected); Norovirus Not Detected (NotDetected); Plesimonas Shigalloides, PCR Not Detected (NotDetected); Rotavirus A Not Detected (NotDetected); Salmonella, PCR Not Detected (NotDetected); Sapovirus Not Detected (NotDetected); Shiga-like toxin E coli Not Detected (NotDetected); Shigella Enterovasive E coli Not Detected (NotDetected); Vibrio Cholerae Not Detected (NotDetected); Vibrio, PCR Not Detected (NotDetected); Yersinia Entercolitica, PCR Not Detected (NotDetected)
== END ==
PROVIDERS: Visit Provider Internal Medicine Adolescent Medicine
DX: R19.7 Diarrhea, unspecified (principal)
CPT/HCPCS: 87507

== ENCOUNTER → 2018-06-17 11:41 | Outpatient (CLI) | payer MEDICARE, BC, SELFPAY ==
--- NOTE | 2018-06-17 11:54 | XR_ITS ---
XR ankle RT min 3V HISTORY: ITS.REASON: RT ANKLE PAIN ORDERING PHYSICIAN: Enzo Meng MD PATIENT AGE: 67 years Comparison: None FINDINGS: Minimal osteoarthritic changes are present at the ankle. No fracture or dislocation. No lytic or blastic change. IMPRESSION: Minimal osteoarthritic change of the ankle with slight decrease in the joint space. Otherwise negative
--- NOTE | 2018-06-17 11:54 | XR_ITS ---
XR tibia fibula RT 2V CLINICAL INDICATION: Right lower extremity pain ITS.REASON: RT FOOT PAIN ORDERING PHYSICIAN: Enzo Meng MD PATIENT AGE: 67 years Comparison: None FINDINGS: Minimal osteoarthritic changes are present involving the knee joint in all 3 compartments. There are also minimal osteoarthritic changes of the ankle. No fracture or dislocation. No lytic or blastic change. IMPRESSION: Minimal osteoarthritic change of the ankle and knee
--- NOTE | 2018-06-17 11:54 | XR_ITS ---
XR foot RT min 3V HISTORY: ITS.REASON: RT FOOT PAIN ORDERING PHYSICIAN: Enzo Meng MD PATIENT AGE: 67 years COMPARISON: None FINDINGS: There is an old fracture of the distal aspect of the second metatarsal with mild lateral angulation of the head of the second metatarsal. No acute fracture or dislocation. There is pes planus with minimal osteoarthritic changes at the talonavicular joint and tarsometatarsal junction. No acute fracture or dislocation. No lytic or blastic change. IMPRESSION: Pes planus with mild osteoarthritic change of the talonavicular joint and metatarsal tarsal joint. Old second metatarsal fracture
== END ==
PROVIDERS: PCP Internal Medicine Adolescent Medicine; Visit Provider Internal Medicine Adolescent Medicine
DX: M79.604 Pain in right leg (principal); M79.671 Pain in right foot
CPT/HCPCS: 73590; 73610; 73630

== ENCOUNTER → 2018-07-03 16:31 | Outpatient (CLI) | payer MEDICARE, BC, SELFPAY ==
--- NOTE | 2018-07-03 16:39 | XR_ITS ---
XR KUB Ordering Physician: Jose Adhikari MD Patient Age: 67 years: Female HISTORY: ITS.REASON: GENERALIZED ABD PAIN Abdominal pain TECHNIQUE: Supine radiograph abdomen. = KUB COMPARISON :Previous CT abdomen May 30, 2018 FINDINGS increased bowel gas overall with no prominent bowel dilatation Moderate gas is seen throughout the small bowel no small bowel dilatation. Also moderate gaseous distention throughout the right & transverse colon, with additional gaseous distention throughout region of splenic flexure into the descending colon. Minimal stool is seen at the rectum & rectosigmoid. No obstruction nor significant appearing dilatation . Appears to be merely prominent diffuse bowel gas on this study. (Without upright study to evaluate for air-fluid level) Clips RUQ from cholecystectomy. The patient has infusion pump or stimulator device at the left lower quadrant overlying the left pelvis, with catheter lumbar spine. Fairly extensive Laminectomy with Previous posterior fusion L-spine again noted. Disc spacer devices are seen at L4/5 L5/S1 related to this previous surgery along with posterior fixation rods and pedicle screws at multiple levels the most superior is seen on the left at the T12/L1 disc level. Mild levocurvature L-spine. Also note some metallic fixation hardware bridging the left SI joint. Multilevel Kyphoplasty is seen noted at included lower T-spine. Partially imaged. Bibasal scarring and atelectasis with blunting left CP angle. Diffuse demineralization. IMPRESSION...... , 1.. Generous gas is seen throughout the bowel with most prominent gas throughout large bowel at towards splenic flexure.. . Minimal stool at the rectosigmoid Moderate small bowel gas but with no significant small bowel dilatation . No obstruction nor significant dilatation . Appears to be merely prominent diffuse bowel gas on this study. (Without upright study to evaluate for air-fluid level) 2. Extensive surgery lumbar spine and left SI joint fixation. . Infusion pump overlying the laterally LLQ with catheter leading to the epidural space
== END ==
PROVIDERS: PCP Internal Medicine Adolescent Medicine; Visit Provider Internal Medicine Adolescent Medicine
DX: R10.84 Generalized abdominal pain (principal)
CPT/HCPCS: 74018

== ENCOUNTER → 2018-07-29 16:18 | Outpatient (CLI) | payer MEDICARE, BC, SELFPAY ==
[2018-07-29 16:24] LABS: Microscopic, Urine URINE MICROSCOPIC (MICROSCOPIC)
--- NOTE | 2018-07-29 16:49 | XR_ITS ---
XR chest 2V HISTORY: Hypertension, diabetes ORDERING PHYSICIAN: Kendrick Britt PATIENT AGE: 67 years COMPARISON: 05/30/2018 FINDINGS: Left hemidiaphragm is elevated with increased density in the left lower lobe consistent with superimposed worsening atelectasis or infiltrate. Atelectatic changes are present in the right mid and right lower lung zone. There has been multilevel vertebral plasties. There is been prior posterior fusion of the mid and upper lumbar spine incompletely visualized. There is mild cardiomegaly without failure. There is been prior total shoulder prosthesis placed on both sides IMPRESSION: 1. Atelectatic changes in the right mid and lower lung 2. Left lower lobe atelectasis or infiltrate 3. Other nonacute findings as described above
[2018-07-29 17:47] LABS: Activated Partial Thrombo Time 30.9 seconds (23.6-34.0); INR 0.97 (0.9-1.1)
[2018-07-29 18:22] LABS: Appearance,Urine CLEAR (Clear); Bilirubin,Urine Negative (Negative); Blood, Urine Negative (Negative); Color,Urine YELLOW (Yellow); Glucose,Urine (UA) Negative (Negative); Ketones,Urine Negative (Negative); Leukocyte Esterase,Urine Negative (Negative); Nitrate,Urine Negative (Negative); Protein,Urine Negative (Negative); Urobilinogen,Urine 0.2 EU/dl (0.2)
[2018-07-29 18:30] LABS: Bacteria,Urine Trace /lpf; Basophils % 0.3 % (0.1-2.0); Eosinophils # 0.3 K/mm3 (0.0-0.4); Eosinophils % 3.7 % (0.1-12.0); Hemoglobin 12.5 g/dL (12.2-16.2); Lymphocytes # 0.9 K/mm3 (0.7-4.5); Lymphocytes % 13.4 % (10-50); Mean Corpuscular HGB Conc 32.7 g/dL (31.8-35.4); Mean Corpuscular Hemoglobin 29.1 pg (27.0-31.2); Mean Corpuscular Volume 88.8 fl (81-99); Mean Platelet Volume 7.2 fl (7.4-10.4); Monocytes # 0.3 K/mm3 (0.1-1.0); Monocytes % 4.3 % (1.7-9.3); Mucus,Urine Trace /lpf; Neutrophils # 5.5 K/mm3 (1.8-7.8); Neutrophils % 78.3 % (37.0-80.0); Platelet Count 245 K/mm3 (142-424); Red Blood Count 4.28 M/mm3 (4.20-5.40); Red Cell Distribution Width 14.4 % (11.5-17.5)
[2018-07-29 18:40] LABS: Alanine Aminotransferase 17 U/L (12-78); Albumin Level 3.3 gm/dL (3.4-5.0); Albumin/Globulin Ratio 0.9 (1.1-1.8); Alkaline Phosphatase 66 U/L (46-116); Anion Gap 6.2 mEq/L (5-15); Aspartate Amino Transferase 13 U/L (15-37); Bilirubin,Total 0.3 mg/dL (0.2-1.0); Blood Urea Nitrogen 6 mg/dL (7-18); Calcium 8.3 mg/dL (8.5-10.1); Chloride 90 mmol/L (98-107); Creatinine,Serum 0.56 mg/dL (0.55-1.02); Estimated Glomerular Filt Rate 109 ml/min (>60); GFR (African American) 131 ML/MIN (>60); Globulin 3.6 gm/dl (1.3-3.2); Glucose 209 mg/dL (74-106); Potassium 3.2 mmoL/L (3.5-5.1); Sodium 135 mmol/L (136-145); Total Protein,Serum 6.9 gm/dL (6.4-8.2)
[2018-07-29 18:53] LABS: Carbon Dioxide 42 mmol/L (21.0-32.0)
== END ==
PROVIDERS: Visit Provider Orthopaedic Surgery
DX: Z01.812 Encounter for preprocedural laboratory examination (principal); Z01.810 Encounter for preprocedural cardiovascular examination; R79.1 Abnormal coagulation profile; R07.9 Chest pain, unspecified; R68.89 Other general symptoms and signs; N39.0 Urinary tract infection, site not specified
CPT/HCPCS: 36415; 71046; 80053; 81001; 85025; 85610; 85730; 93005

== ENCOUNTER → 2018-08-04 13:08 | Outpatient (CLI) | payer MEDICARE, BC, SELFPAY ==
--- NOTE | 2018-08-04 13:18 | XR_ITS ---
XR soft tissue neck CLINICAL INDICATION: Neck pain ITS.REASON: STRAIN OF NECK MUSCLES ORDERING PHYSICIAN: Jose Adhikari MD PATIENT AGE: 67 years Comparison: None FINDINGS: The C-spine is only visualized to the C4 level. There is mild anterolisthesis of C3 on C4 of 4 mm. Facet arthritic changes are noted on the frontal view at C3-C4. Of the visualized cervical spine no fracture is evident. IMPRESSION: Incomplete visualization of the lower cervical spine. Consider CT for more thorough evaluation. 4 mm anterolisthesis of C3 on C4 with facet arthritic changes at that level
== END ==
PROVIDERS: PCP Internal Medicine Adolescent Medicine; Visit Provider Internal Medicine Adolescent Medicine
DX: S16.1XXA Strain of muscle, fascia and tendon at neck level, initial encounter (principal)
CPT/HCPCS: 70360

== ENCOUNTER → 2019-03-05 12:10 | Outpatient (CLI) | payer MEDICARE, BC, SELFPAY ==
--- NOTE | 2019-03-05 12:15 | XR_ITS ---
PROCEDURE: XR THORACIC SPINE 3V CLINICAL INDICATION: THORACIC SPRAIN Pain COMPARISON: TSP2 THORACIC SPINE AP LAT-2VIEW from 12/04/[id number] abdomen pelvis wo con from 11/23/2018 FINDINGS: There has been prior vertebroplasty of T8, T7, T6, T5, and T4 with wedge compression changes of these vertebral bodies greatest at the T4 level. T3-T2 and T1 are not well delineated being obscured by the overlying humeral prosthesis on the lateral view. Chiang rods are present in the lumbar spine with the superior screw at the T12 area inferiorly. There is good alignment. Atelectatic changes are present in the lung bases with elevated left hemidiaphragm IMPRESSION: Multiple wedge compression changes with multiple vertebroplasties as described above Dictated by: Peter Morales MD 03/05/2019 12:56 Electronically signed by Peter Morales MD in [facility] 03/05/2019 12:56
== END ==
PROVIDERS: PCP Internal Medicine Adolescent Medicine; Visit Provider Internal Medicine Adolescent Medicine
DX: S23.9XXD Sprain of unspecified parts of thorax, subsequent encounter (principal)
CPT/HCPCS: 72072

== ENCOUNTER → 2019-04-23 15:00 | Outpatient (CLI) | payer MEDICARE, BC, SELFPAY ==
--- NOTE | 2019-04-23 15:04 | CT_ITS ---
PROCEDURE: CT SHOULDER RT WO CON CLINICAL HISTORY: RT SHOULDER PAIN Right shoulder pain with limited range of motion. Previous fracture and surgical repair COMPARISON: from 09/22/2018 XR SHOULDER RT MIN 2V from 01/17/2019 TECHNIQUE: Axial images obtained with sagittal and coronal reformats. All CT scans at the facility use one or more dose reduction, viz: automated exposure control, ma/kV adjustment per patient size (including targeted exams where dose is matched to indication, i.e. head), or iterative reconstruction technique. FINDINGS: There is a total right shoulder joint replacement present. Significant artifact is present from this prosthesis. The cup portion of the prosthesis is within the glenoid. There are 4 screws extending from the cup superior medially into the soft tissues posteriorly. Only the most inferior and medial screw appears to have any bony purchase. This is however difficult to ascertain due to the artifact. There is no evidence of dislocation of the prosthesis. Bony hypertrophy is present along the medial and posterior aspect of the glenoid. There is a short intramedullary rachel in the humeral head and proximal humerus with a bony sideplate in the mid and distal humerus. There is a lucency at the base of the a chromium suggesting an old fracture. Incidental note made of atelectatic or fibrotic changes in the right lower lobe. IMPRESSION: 1. Total right shoulder prosthesis present. Significant artifact is present from the prosthesis obscuring fine detail. This screws of the glenoid cup are projected superiorly and medially with bony purchase of only 1 screw suspected. 2. Overlying osteoarthritic changes of the shoulder. 3. Lucency noted at the base of the acromion at the scapular spine region suggesting a nondisplaced fracture Dictated by: Peter Morales MD 04/26/2019 05:19 Electronically signed by Peter Morales MD in [facility] 04/26/2019 05:19
== END ==
PROVIDERS: PCP Internal Medicine Adolescent Medicine; Visit Provider Orthopaedic Surgery
DX: M25.511 Pain in right shoulder (principal)
CPT/HCPCS: 73200

== ENCOUNTER → 2019-05-27 12:20 | Outpatient (CLI) | payer MEDICARE, BC, SELFPAY ==
[2019-05-27 13:46] LABS: Alanine Aminotransferase 13 U/L (12-78); Albumin Level 3.4 gm/dL (3.4-5.0); Alkaline Phosphatase 65 U/L (46-116); Anion Gap 6.5 mEq/L (5-15); Aspartate Amino Transferase 12 U/L (15-37); Bilirubin,Total 0.4 mg/dL (0.2-1.0); Blood Urea Nitrogen 6 mg/dL (7-18); Calcium 8.5 mg/dL (8.5-10.1); Chloride 91 mmol/L (98-107); Creatinine,Serum 0.49 mg/dL (0.55-1.02); Estimated Glomerular Filt Rate 126 ml/min (>60); GFR (African American) 153 ML/MIN (>60); Globulin 3.5 gm/dl (1.3-3.2); Glucose 58 mg/dL (74-106); Potassium 3.5 mmoL/L (3.5-5.1); Sodium 135 mmol/L (136-145); Total Protein,Serum 6.9 gm/dL (6.4-8.2)
[2019-05-27 13:51] LABS: Carbon Dioxide 41 mmol/L (21.0-32.0)
== END ==
PROVIDERS: Visit Provider Internal Medicine Adolescent Medicine
DX: I27.20 Pulmonary hypertension, unspecified (principal)
CPT/HCPCS: 36415; 80053

== ENCOUNTER 2019-09-08 00:41 | Emergency (ER) | payer MEDICARE, BC, SELFPAY ==
[2019-09-08 00:51] VITALS: BP 136/68; PULSE 81; RESP 18; TEMP 36.9; O2SAT 92; BMI 31.3
--- NOTE | 2019-09-08 01:26 | XR_ITS ---
PROCEDURE: XR CHEST PORTABLE CLINICAL HISTORY: feels bad Cough, congestion COMPARISON: CHESTW CT chest w con from 08/21/2017 CXR1VP XR chest portable from 05/30/2018 CXR2V XR chest 2V from 07/29/2018 XR CHEST PORTABLE from 06/13/2019 FINDINGS: There are low lung volumes. There is cardiomegaly with mild pulmonary venous congestion. Left hemidiaphragm is slightly elevated. There are chronic changes in the right lower lobe. Cannot exclude underlying infiltrate in the lung base on the right. There are bilateral shoulder prosthesis present. IMPRESSION: Cardiomegaly with low lung volumes with atelectasis or infiltrate in the right lung base with superimposed chronic changes Dictated by: Peter Morales MD 09/08/2019 06:23 Electronically signed by Peter Morales MD in [facility] 09/08/2019 06:23
[2019-09-08 01:31] LABS: Basophils # 0.1 K/mm3 (0-0.2); Basophils % 1.4 % (0.1-2.0); Eosinophils # 0.1 K/mm3 (0.0-0.4); Eosinophils % 2.6 % (0.1-12.0); Hematocrit 33.9 % (37.0-47.0); Hemoglobin 10.5 g/dL (12.2-16.2); Lymphocytes % 21.4 % (10-50); Mean Corpuscular HGB Conc 31.1 g/dL (31.8-35.4); Mean Corpuscular Hemoglobin 26.9 pg (27.0-31.2); Mean Corpuscular Volume 86.6 fl (81-99); Monocytes # 0.4 K/mm3 (0.1-1.0); Monocytes % 7.9 % (1.7-9.3); Neutrophils # 3.2 K/mm3 (1.8-7.8); Neutrophils % 66.8 % (37.0-80.0); Platelet Count 162 K/mm3 (142-424); Red Blood Count 3.91 M/mm3 (4.20-5.40); Red Cell Distribution Width 13.7 % (11.5-17.5); White Blood Count 4.9 K/mm3 (4.8-10.8)
[2019-09-08 01:37] LABS: Alanine Aminotransferase 10 U/L (12-78); Albumin Level 3.8 g/dl (3.5-5.0); Albumin/Globulin Ratio 1.2 (1.1-1.8); Alkaline Phosphatase 63 U/L (38-126); Aspartate Amino Transferase 17 U/L (14-36); Bilirubin,Total 0.2 mg/dl (0.2-1.3); Blood Urea Nitrogen 10 mg/dl (7-17); Calcium 8.9 mg/dl (8.4-10.2); Chloride 90 mmol/L (98-107); Creatinine Clearance Estimated 78 mL/min (50-200); Estimated Glomerular Filt Rate 159 ml/min (>60); GFR (African American) 193 ML/MIN (>60); Globulin 3.3 g/dL (1.3-3.2); Glucose 90 mg/dl (74-100); Potassium 3.8 mmoL/L (3.5-5.1); Sodium 139 mmol/L (136-145); Total Protein,Serum 7.1 g/dl (6.3-8.2)
[2019-09-08 01:53] LABS: Anion Gap 8.8 mEq/L (5-15); Carbon Dioxide 44 mmol/L (22.0-30.0)
[2019-09-08 01:56] LABS: Microscopic, Urine URINE MICROSCOPIC (MICROSCOPIC)
[2019-09-08 02:06] LABS: Appearance,Urine CLEAR (Clear); Bilirubin,Urine Negative (Negative); Blood, Urine Negative (Negative); Color,Urine YELLOW (Yellow); Glucose,Urine (UA) Negative (Negative); Ketones,Urine Negative (Negative); Leukocyte Esterase,Urine TRACE (Negative); Nitrate,Urine Negative (Negative); Protein,Urine Negative (Negative); Urobilinogen,Urine 0.2 EU/dl (0.2)
[2019-09-08 02:10] VITALS: BP 129/69; PULSE 77; RESP 18; O2SAT 99
[2019-09-08 02:12] LABS: Bacteria,Urine 1+ /lpf
--- NOTE | 2019-09-08 02:16 | HMH.EDNVD ---
ED Disposition Clinical Impression: Malaise Disposition: Home, Self-Care Condition on Discharge: Fair Instructions: DI for Nausea -- Adult Additional Instructions: fluids and call pcp for follow up this am Referrals: Enzo Meng MD [Primary Care Provider] - - Critical Care Critical Care Time: No Attestation: On 09/08/19, the high probability of a clinically significant, sudden or life threatening deterioration of the following system(s) required my full and direct attention, intervention and personal management. The time I documented below is in addition to time spent performing reported procedures but includes the following listed in this critical care notation. Medical Decision Making - Medical Records Medical records reviewed: Yes: I reviewed the patient's medical records. - Josh Inquiry Pt receiving controlled substance: No Vital Signs: 09/08/19 00:51 09/08/19 02:10 Temperature 98.4 F Temperature Source Oral Pulse Rate [Left Brachial] 81 77 Respiratory Rate 18 18 Blood Pressure [Left Arm] 136/68 129/69 Blood Pressure Mean [Left Arm] 90 89 Blood Pressure Source [Left Arm] Automatic Cuff Automatic Cuff Blood Pressure Position [Left Arm] Sitting Sitting 02 Sat by Pulse Oximetry 92 L 99 Oxygen Delivery Method Nasal Cannula Nasal Cannula Oxygen Flow Rate (LPM) 3 - Lab Data Lab results reviewed: Yes: I reviewed the patient's lab results. Lab Results 09/08/19 01:15: WBC 4.9, RBC 3.91 L, Hgb 10.5 L, Hct 33.9 L, MCV 86.6, MCH 26.9 L, MCHC 31.1 L, RDW 13.7, Plt Count 162, MPV 9.0, Neut % (Auto) 66.8, Lymph % (Auto) 21.4, Denali % (Auto) 7.9, Eos % (Auto) 2.6, Baso % (Auto) 1.4, Neut # (Auto) 3.2, Lymph # (Auto) 1.0, Denali # (Auto) 0.4, Eos # (Auto) 0.1, Baso # (Auto) 0.1 09/08/19 01:15: Sodium 139, Potassium 3.8, Chloride 90 L, Carbon Dioxide 44 H*, Anion Gap 8.8, BUN 10, Creatinine 0.40 L, Estimated Creat Clear 78, Estimated GFR 159, Est GFR ( Amer) 193, Glucose 90, Calcium 8.9, Total Bilirubin 0.2, AST 17, ALT 10 L, Alkaline Phosphatase 63, Total Protein 7.1, Albumin 3.8, Globulin 3.3 H, Albumin/Globulin Ratio 1.2 09/08/19 01:29: Influenza Type A Ag Negative, Influenza Type B Ag Negative 09/08/19 01:42: Urine Color Yellow, Urine Appearance Clear, Urine pH 8.0, Ur Specific Bland 1.010, Urine Protein Negative, Urine Glucose (UA) Negative, Urine Ketones Negative, Urine Blood Negative, Urine Nitrate Negative, Urine Bilirubin Negative, Urine Urobilinogen 0.2, Ur Leukocyte Esterase Trace, Urine WBC 3-5, Ur Squamous Epith Cells 5-10, Urine Bacteria 1+ Result diagrams: 09/08/19 01:15 09/08/19 01:15 Orders (Tests/Meds): ORDERS Category Date Time Status XR chest portable Stat Exams 09/08/19 01:26 Taken - Radiology Data #1 Image(s): Chest Image Reviewed: Yes I reviewed the patient's radiology image Preliminary Findings: Abnormal (chronic changes ) - Reevaluation(s) Time: 02:27 Reevaluation #1: feels better Medical Decision Narrative: will need general eval and diarrhea specimen if possible Nausea/Vomiting/Diarrhea HPI - General Chief complaint: Nausea/Vomiting/Diarrhea Stated complaint: nausea diarhea Time Seen by Provider: 09/08/19 01:15 Mode of Arrival: Wheelchair Source of Information: Patient, Medical Record Limitations: No Limitations Description of Symptoms (Recalled from ER Triage Doc. by RN): Patient reports she woke up today felling icky . Patient reports she hasnt been able to eat anything today and almost had diarrhea. Patient denies any vomiting or pain. - History of Present Illness HPI Narrative: has not felt well but no exposure to covid virus - no def vomiting or diarrhea- no new rash - no cough or chest pain MD complaint: nausea Onset (ago): hour(s) Associated Abdominal Pain: No Associated symptoms: malaise - Related Data Home Medications Medication Instructions Recorded Confirmed ARIPiprazole [Abilify] 30 mg PO DIRECTED
[2019-09-08 02:34] VITALS: BP 125/63; PULSE 76; RESP 18; TEMP 36.9; O2SAT 99
== END 2019-09-08 02:37 | disposition home or self-care (01) ==
PROVIDERS: Emergency Provider Emergency Medicine; PCP Internal Medicine Adolescent Medicine
DX: R53.81 Other malaise (principal); E78.5 Hyperlipidemia, unspecified; E11.9 Type 2 diabetes mellitus without complications; Z79.4 Long term (current) use of insulin; I10 Essential (primary) hypertension; K21.9 Gastro-esophageal reflux disease without esophagitis; Z99.81 Dependence on supplemental oxygen; Z96.642 Presence of left artificial hip joint; Z90.79 Acquired absence of other genital organ(s); Z88.0 Allergy status to penicillin; Z88.2 Allergy status to sulfonamides; Z88.5 Allergy status to narcotic agent
CPT/HCPCS: 71045; 80053; 81001; 85025; 87086; 87088; 87186; 87275; 87276; 99283; 99284

== ENCOUNTER 2019-09-29 23:17 | Emergency (ER) | payer MEDICARE, BC, SELFPAY ==
[2019-09-29 23:39] VITALS: BP 135/53; PULSE 93; RESP 16; TEMP 37.1; O2SAT 96; BMI 31.3
--- NOTE | 2019-09-30 00:07 | HMH.EDHA ---
ED Disposition Clinical Impression: Headache Qualifiers: Headache type: unspecified Headache chronicity pattern: unspecified pattern Intractability: not intractable Qualified Code(s): R51 - Headache Disposition: Home, Self-Care Condition on Discharge: Good Instructions: DI for Headache Additional Instructions: call pcp in am Referrals: Enzo Meng MD [Primary Care Provider] - - Critical Care Critical Care Time: No Attestation: On 09/29/19, the high probability of a clinically significant, sudden or life threatening deterioration of the following system(s) required my full and direct attention, intervention and personal management. The time I documented below is in addition to time spent performing reported procedures but includes the following listed in this critical care notation. Medical Decision Making - Medical Records Medical records reviewed: Yes: I reviewed the patient's medical records. - Josh Inquiry Pt receiving controlled substance: No Vital Signs: 09/29/19 23:39 Temperature 98.8 F Temperature Source Oral Pulse Rate [Right] 93 H Respiratory Rate 16 Blood Pressure [Right Arm] 135/53 L Blood Pressure Mean [Right Arm] 80 Blood Pressure Source [Right Arm] Automatic Cuff Blood Pressure Position [Right Arm] Sitting 02 Sat by Pulse Oximetry 96 Oxygen Delivery Method Nasal Cannula Oxygen Flow Rate (LPM) 2 - Lab Data Lab results reviewed: Yes: I reviewed the patient's lab results. Headache HPI - General Chief Complaint: Headache Stated Complaint: headache Time Seen by Provider: 09/30/19 00:00 Mode of Arrival: Wheelchair Source of Information: Patient, Spouse, Medical Record Limitations: Physical Limitations Description of Symptoms (Recalled from ER Triage Doc. by RN): pt states she has had a h/a for a couple days. - History of Present Illness HPI Narrative: atraumatic vertex lynn over the last few days - no fever or rash and no neuro sx Complaint: headache Onset (ago): day(s) Onset description: gradual Location: other (vertex ) Severity: moderate Quality: intermittent Context: occurred at rest Associated symptoms: none Treatments prior to arrival: acetaminophen, ibuprofen - Related Data Home Medications Medication Instructions Recorded Confirmed ARIPiprazole [Abilify] 30 mg PO DIRECTED 07/23/17 09/22/18 Atorvastatin Calcium [Lipitor 20mg 20 mg PO DIRECTED 07/23/17 09/22/18 Tablet] Insulin Lispro [Humalog Kwikpen 100 unit SQ DIRECTED 07/23/17 09/22/18 U-100] Metformin HCl [Glucophage 500mg 500 mg PO HS 07/23/17 09/22/18 Tablet] Oxycodone HCl [Oxycodone (IR) 15mg 15 mg PO QID 07/23/17 09/22/18 Tab] Pantoprazole Sodium [Protonix 40mg 40 mg PO DAILY 07/23/17 09/22/18 tablet] Temazepam [Restoril 15mg capsule] 15 mg PO DIRECTED 07/23/17 09/22/18 hydrOXYzine pamoate [Vistaril] 25 mg PO DAILY 07/23/17 09/22/18 Lubiprostone [Amitiza] 1 tab PO BID 09/06/17 09/22/18 polyethylene glycoL 3350 [Miralax 17 gm PO DAILY 09/06/17 09/22/18 17gm Packet] methocarbamoL [Robaxin 750mg Tab] 750 mg PO NEEDED PRN 11/29/17 09/22/18 metOLazone [metOLazone 2.5mg 2.5 mg PO DAILY 12/14/17 09/22/18 Tablet] Lactobacillus Acidophilus 2 each PO TID 12/21/17 09/22/18 [Acidophilus] Fluticasone Propionate 1 spray INTRANASAL DAILY 01/23/18 09/22/18 Montelukast Sodium [Singulair] 10 mg PO QAM 01/23/18 09/22/18 Meloxicam [Mobic 7.5mg Tab] 7.5 mg PO BID 02/13/18 09/22/18 Previous Rx's Medication Instructions Recorded Promethazine HCl [Phenergan 25mg 25 mg PO Q6HP PRN #10 tab 02/13/18 tab] Lactulose [Lactulose 20gm/30ml 20 gm PO DAILYP PRN #30 ml 04/26/18 Oral Soln] Ondansetron [Zofran 4mg ODT] 4 mg PO TIDP PRN #10 tab.rapdis 05/13/18 Dicyclomine HCl [Bentyl 10mg 10 mg PO TID 3 Days #10 cap 11/23/18 capsule] Triamcinolone Acetonide [Oralone] 1 applicatio TP BIDP PRN #1 tube 01/14/19 lidocaine HCL [Lidocaine 2% 1 applicatio TP TIDP PRN #
--- NOTE | 2019-09-30 00:26 | PC.NURSE ---
speaking with Dr. Blue
[2019-09-30 00:34] VITALS: BP 134/65; PULSE 94; RESP 14; TEMP 37.1; O2SAT 93
== END 2019-09-30 01:05 | disposition home or self-care (01) ==
PROVIDERS: Emergency Provider Emergency Medicine; PCP Internal Medicine Adolescent Medicine
DX: R51 Headache (principal); E11.9 Type 2 diabetes mellitus without complications; F41.9 Anxiety disorder, unspecified; K21.9 Gastro-esophageal reflux disease without esophagitis; I10 Essential (primary) hypertension; Z96.642 Presence of left artificial hip joint; E78.5 Hyperlipidemia, unspecified; Z87.891 Personal history of nicotine dependence; Z88.0 Allergy status to penicillin; Z88.2 Allergy status to sulfonamides; Z79.899 Other long term (current) drug therapy; Z90.79 Acquired absence of other genital organ(s)
CPT/HCPCS: 96372; 99281

== ENCOUNTER 2019-12-29 16:00 | Outpatient (RCR) | payer MEDICARE, BC, SELFPAY ==
--- NOTE | 2019-09-15 16:33 | HMH.PTOPWND ---
Rehab Outpt Wound Evaluation Rehab OP Wound Evaluation Start: 09/15/19 16:03 Freq: Status: Active Protocol: Document 09/15/19 16:05 SHELLIFLORECITA (Rec: 09/15/19 16:31 PWFLORECITA [id number]) Electronically Signed By Kareem Monteiro, ZOILA 09/15/19 16:05 Subjective/History History History This is the initial Physical Therapy Lymphedema evaluation for Monique Abreu. Pt is a 69 y/o female w/ long history of LE lymphedema and swelling. Pt does not ambulate and uses w/c as motovation. Pt is able to stand step tansfer w/ assistance. Pt reports long hx of 10+ years of BLE swelling. Pt and state that they are normally bale to maintain w/ HEP and home rx, but two weeks ago pt had significant increase in fluid retention. Subjective Subjective Pt reports TTP in B lowe legs, but states she has neuropathy . Lymphedema Eval Classification of Lymphedema Secondary Lymphedema Yes Stemmer's sign Stemmer's Sign yes Stage of Lymphedema Lymphedema stages Stage II (Pitting edema, increased fibrosis w/ decreased pitting) Skin Changes Dry Skin Yes Taut, Shiny Skin Yes Hyperkeratosis Yes Papillomatosis Yes Redness Yes Brittle Uneven Nails Yes Discoloration of Skin Yes Peau D'Culpeper Yes Pain Scale Pain Scale (0-10) 9 Radiation Therapy Has received radiation therapy no Chemo Therapy Has received chemo therapy no Affected Extremities Areas Affected by Lymphedema/Edema Right Lower Extremity,Left Lower Extremity Lower Extremity Measurements Right MTP Measurement (cm) 22.7 Heel Measurement (cm) 33.7 10 cm Proximal to Lateral Malleoli 23.7 Measurement (cm) 20 cm Proximal to Lateral Malleoli 33.3 Measurement (cm) 30 cm Proximal to Lateral Malleoli 44.1 Measurement (cm) 40 cm Proximal to Lateral Malleoli 47.6 Measurement (cm) 50 cm Proximal to Lateral Malleoli 52.0 Measurement (cm) 60 cm Proximal to Lateral Malleoli 66.9 Measurement (cm)
--- NOTE | 2019-11-11 16:02 | HMH.RHREAS ---
Rehab Reassessment Rehab OP Re-assessment Start: 11/11/19 16:00 Freq: Status: Active Protocol: Document 11/11/19 16:00 AALIYAH (Rec: 11/11/19 16:02 AALIYAH [id number]) Electronically Signed By Todd Monte, PT 11/11/19 16:00 Rehab Re-assessment Subjective Subjective Pt reports more swollen and painful today, but she has not had her lasix yet. Objective Objective Notes Tissue quality slightly more fibrotic today, but overall tissue stiffness has improved. Assessment Progress Assessment Progressing as Expected Assessment Notes Decreasing edema overall. Patient goals met ST,2,3,4 Goals Not Met LT,2,3,4,5,6,7 Revised Goals none Plan Plan Continue per initial POC Frequency of Therapy 2 x/wk Duration of therapy 8 wks Time and Billing Re-Eval Time 15 Re-Eval Billing Units 1 PHYSICIAN CERTIFICATION: I certify the specified therapy services for Monique Abreu are required, authorized, and reviewed every 30 days.
--- NOTE | 2019-12-15 15:28 | HMH.RHREAS ---
Rehab Reassessment Rehab OP Re-assessment Start: 11/11/19 16:00 Freq: Status: Active Protocol: Document 12/15/19 15:27 AALIYAH (Rec: 12/15/19 15:28 [email or web address] [id number]) Electronically Signed By Todd Monte, PT 12/15/19 15:27 Rehab Re-assessment Subjective Subjective Pt continues to c/o increased tenderness in B lower legs. Objective Objective Notes B medial thigh with increased fibrotic tissue edema noted. Mild erythema to med B thigh. Assessment Progress Assessment Progressing as Expected Assessment Notes Improved edema in B feet, but pitting remains throughout B LE. Patient goals met ST,2,3,4 Goals Not Met LT,2,3,4,5,6,7 Revised Goals none Plan Plan Continue per initial POC Frequency of Therapy 2 x/wk Duration of therapy 8 wks Time and Billing Re-Eval Time 15 Re-Eval Billing Units 1 PHYSICIAN CERTIFICATION: I certify the specified therapy services for Monique Abreu are required, authorized, and reviewed every 30 days.
== END 2019-12-29 16:45 | disposition home or self-care (01) ==
LOC: PT 16:00
PROVIDERS: PCP Internal Medicine Adolescent Medicine; Visit Provider Internal Medicine Adolescent Medicine
DX: I89.0 Lymphedema, not elsewhere classified (principal); L03.119 Cellulitis of unspecified part of limb; R60.0 Localized edema
CPT/HCPCS: 97140; 97162; 97164; 97760

== ENCOUNTER 2020-01-18 07:56 | Emergency (ER) | payer MEDICARE, BC, SELFPAY ==
[2020-01-18 07:56] VITALS: BP 156/65; PULSE 105; RESP 20; TEMP 37.3; O2SAT 95; BMI 30.9
--- NOTE | 2020-01-18 08:25 | PC.NURSE ---
Pt repositioned in bed. pt complaining of pain at this time.
[2020-01-18 08:30] VITALS: BP 160/86; PULSE 104; O2SAT 94
--- NOTE | 2020-01-18 08:50 | HMH.EDGENADL ---
ED Disposition Clinical Impression: Acute exacerbation of chronic low back pain, Acute pain of left knee Disposition: Home, Self-Care Condition on Discharge: Good Instructions: DI for Low Back Pain Referrals: Enzo Meng MD [Primary Care Provider] - - Critical Care Critical Care Time: No Attestation: On 01/18/20, the high probability of a clinically significant, sudden or life threatening deterioration of the following system(s) required my full and direct attention, intervention and personal management. The time I documented below is in addition to time spent performing reported procedures but includes the following listed in this critical care notation. Medical Decision Making - Medical Records Medical records reviewed: Yes: I reviewed the patient's medical records. - Josh Inquiry Pt receiving controlled substance: No Vital Signs: 01/18/20 07:56 01/18/20 08:30 Temperature 99.2 F Temperature Source Oral Pulse Rate [Right] 105 H 104 H Respiratory Rate 20 Blood Pressure [Right Arm] 156/65 H 160/86 H Blood Pressure Mean [Right Arm] 95 110 Blood Pressure Source [Right Arm] Automatic Cuff Blood Pressure Position [Right Arm] Sitting 02 Sat by Pulse Oximetry 95 94 L Oxygen Delivery Method Nasal Cannula Nasal Cannula Oxygen Flow Rate (LPM) 2 - Lab Data Lab results reviewed: Yes: I reviewed the patient's lab results. General Adult HPI - General Chief complaint: Back Pain/Injury Stated complaint: back pain Time Seen by Provider: 01/18/20 08:50 Mode of Arrival: EMS Limitations: No Limitations Description of Symptoms (Recalled from ER Triage Doc. by RN): C/O lower back pain and pain in her buttocks. Pt has chronic back pain, takes pain medication and has a pain pump. - History of Present Illness HPI narrative: A 69-year-old female comes in with acute on chronic pain. Patient states that she has pain all over specifically more so in the left knee. Patient also states that she recently had a shoulder surgery done on 05 January. Patient is presently on oxycodone 15 mg every 4 hours. Patient states her pain is unbearable. Patient wants to get an MRI of the knee and I told the that we typically do not do MRIs through the emergency department that they would have to contact her primary care. Patient states that ever since she was discharged in the hospital after shoulder surgery she has had this left knee pain and x-ray has been done and no acute fractures were noted. Patient does not have any overt swelling in the knee but just complains of severe pain. Patient rates her pain 10 out of 10 and states that it sharp and pressure-like sensation in the knee and states that there are no alleviating factors. She states exacerbating factors include any sort of movement. Patient denies any other acute symptoms.Patient denies any recent cough or shortness of breath, patient denies any sore throat or headache, patient denies any loss of taste or smell, patient denies any malaise or fatigue, patient denies any abdominal pain nausea vomiting or diarrhea. - Related Data Home Medications Medication Instructions Recorded Confirmed ARIPiprazole [Abilify] 30 mg PO DIRECTED 07/23/17 09/22/18 Atorvastatin Calcium [Lipitor 20mg 20 mg PO DIRECTED 07/23/17 09/22/18 Tablet] Insulin Lispro [Humalog Kwikpen 100 unit SQ DIRECTED 07/23/17 09/22/18 U-100] Metformin HCl [Glucophage 500mg 500 mg PO HS 07/23/17 09/22/18 Tablet] Oxycodone HCl [Oxycodone (IR) 15mg 15 mg PO QID 07/23/17 09/22/18 Tab] Pantoprazole Sodium [Protonix 40mg 40 mg PO DAILY 07/23/17 09/22/18 tablet] Temazepam [Restoril 15mg capsule] 15 mg PO DIRECTED 07/23/17 09/22/18 hydrOXYzine pamoate [Vistaril] 25 mg PO DAILY 07/23/17 09/22/18 Lubiprostone [Amitiza] 1 tab PO BID 09/06/17 09/22/18 polyethylene glycoL 3350 [Miralax 17 gm PO DAILY 09/06/17 09/22/18 17gm Packet] methocarbamoL [Robaxin 750mg Tab] 75
--- NOTE | 2020-01-18 09:11 | PC.NURSE ---
APPT WITH DR CASTREJON ON 01/18 @ 2408.
[2020-01-18 09:21] VITALS: BP 142/86; PULSE 98; RESP 20; TEMP 37.1; O2SAT 95
== END 2020-01-18 09:34 | disposition home or self-care (01) ==
PROVIDERS: Emergency Provider Emergency Medicine; PCP Internal Medicine Adolescent Medicine
DX: M25.562 Pain in left knee (principal); M54.5 Low back pain; E11.9 Type 2 diabetes mellitus without complications; K21.9 Gastro-esophageal reflux disease without esophagitis; E78.5 Hyperlipidemia, unspecified; I10 Essential (primary) hypertension; Z96.642 Presence of left artificial hip joint; Z87.891 Personal history of nicotine dependence; Z88.0 Allergy status to penicillin; Z88.2 Allergy status to sulfonamides; Z88.8 Allergy status to other drugs, medicaments and biological substances
CPT/HCPCS: 96372; 99282

== ENCOUNTER → 2020-01-19 10:04 | Outpatient (CLI) | payer MEDICARE, BC, SELFPAY ==
--- NOTE | 2020-01-19 10:20 | XR_ITS ---
PROCEDURE: XR LUMBAR SPINE MIN 4V CLINICAL INDICATION: LT SIDE SCIATICA COMPARISON: CR [id number] LUMBAR SPINE-2 TO 3 VIEWS from 01/01/[id number] abdomen pelvis wo con from 11/23/2018 FINDINGS: Extensive postsurgical changes with inter pedicular screws and connecting rods on the left from the inferior aspect of the T12 vertebral body to S1 and on the right from the inferior aspect of the L1 vertebral body to the S2 level. There is fusion of the lumbar spine. Spacer devices are present at L2-L3 L4-5 and L5-S1. There has been prior the sacroiliac fusion bilaterally with metallic devices. There is lumbar scoliosis convex left. An intrathecal catheter is present posteriorly at the lumbar region. Additional catheter is noted in the left mid abdominal region. There has been removal the superior most screws at T11 and T12 compared to the older exam. No obvious acute fracture or dislocation. The SI fusion has occurred since the previous exam. The screw on the left at T12-L1 enters at the level of the interspace and not the pedicle. The screws at L1-L2 also appear to be at the interspace and not pedicles. IMPRESSION: There are extensive postsurgical changes with prior fusion of the lumbar spine with posterior laminectomy of the lumbar spine as described above with lumbar scoliosis convex left and prior bilateral sacroiliac fusion. Dictated by: Peter Morales MD 01/19/2020 15:38 Peter Morales MD in [facility] 01/19/2020 15:38
[2020-01-19 15:49] LABS: Chloride 87 mmol/L (98-107); Potassium 3.8 mmoL/L (3.5-5.1); Sodium 137 mmol/L (136-145)
[2020-01-19 15:52] LABS: Alanine Aminotransferase 13 U/L (12-78); Albumin Level 3.5 g/dl (3.5-5.0); Albumin/Globulin Ratio 1.1 (1.1-1.8); Alkaline Phosphatase 113 U/L (38-126); Aspartate Amino Transferase 22 U/L (14-36); Bilirubin,Total 0.4 mg/dl (0.2-1.3); Blood Urea Nitrogen 9 mg/dl (7-17); Calcium 8.3 mg/dl (8.4-10.2); Cholesterol 131 mg/dl (140-200); Estimated Glomerular Filt Rate 159 ml/min (>60); GFR (African American) 193 ML/MIN (>60); Globulin 3.2 g/dL (1.3-3.2); Glucose 75 mg/dl (74-100); Total Protein,Serum 6.7 g/dl (6.3-8.2); Triglycerides 76 mg/dl (30-150); VLDL Cholesterol 15 mg/dL (0-40)
[2020-01-19 15:53] LABS: Chol/HDL Ratio 2.3 (1-3.5); HDL Cholesterol 57 mg/dl (40-60)
[2020-01-19 15:54] LABS: Hemoglobin A1C 7.1 % (4.0-6.0)
[2020-01-19 15:59] LABS: Anion Gap 14.8 mEq/L (5-15); Carbon Dioxide 39 mmol/L (22.0-30.0)
[2020-01-19 16:03] LABS: Direct LDL Cholesterol 60.64 mg/dL (100-129)
== END ==
PROVIDERS: PCP Internal Medicine Adolescent Medicine; Visit Provider Internal Medicine Adolescent Medicine
DX: M54.32 Sciatica, left side (principal); E78.5 Hyperlipidemia, unspecified; E11.9 Type 2 diabetes mellitus without complications; Z79.4 Long term (current) use of insulin
CPT/HCPCS: 72110; 80053; 80061; 83036

== ENCOUNTER 2020-01-23 16:09 | Emergency (ER) | payer MEDICARE, BC, SELFPAY ==
[2020-01-23 16:09] VITALS: BP 150/81; PULSE 105; RESP 22; TEMP 36.6; O2SAT 98; BMI 31.3
--- NOTE | 2020-01-23 16:28 | HMH.EDBACK ---
ED Disposition Clinical Impression: Chronic lumbar radiculopathy, Lumbar radiculopathy Disposition: Home, Self-Care Condition on Discharge: Fair Instructions: DI for Low Back Pain Referrals: Enzo Meng MD [Primary Care Provider] - - Critical Care Critical Care Time: No Attestation: On , the high probability of a clinically significant, sudden or life threatening deterioration of the following system(s) required my full and direct attention, intervention and personal management. The time I documented below is in addition to time spent performing reported procedures but includes the following listed in this critical care notation. Medical Decision Making - Medical Records Medical records reviewed: Yes: I reviewed the patient's medical records. - Josh Inquiry Pt receiving controlled substance: No Vital Signs: 01/23/20 16:09 01/23/20 16:30 Temperature 98 F Temperature Source Oral Pulse Rate [Left Radial] 105 H 104 H Respiratory Rate 22 18 Blood Pressure [Right Arm] 150/81 H 167/74 H Blood Pressure Mean [Right Arm] 104 105 Blood Pressure Source [Right Arm] Automatic Cuff Blood Pressure Position [Right Arm] Sitting Sitting 02 Sat by Pulse Oximetry 98 95 Oxygen Delivery Method Room Air Orders (Tests/Meds): ED MEDICATIONS Generic Name Dose Route Start Last Admin Trade Name Freq PRN Reason Stop Dose Admin Ketorolac Tromethamine 60 mg 01/23/20 16:32 Toradol 60mg/2ml Vial IM 01/23/20 16:33 ONCE ONE Methylprednisolone Sodium Succinate 60 mg 01/23/20 16:32 Solu-Medrol 125mg/2ml Vial IM 01/23/20 16:33 ONCE ONE Orphenadrine Citrate 60 mg 01/23/20 16:32 Norflex 60mg/2ml Vial IM 01/23/20 16:33 ONCE ONE Back Pain HPI - General Chief Complaint: Back Pain/Injury Stated Complaint: Back and leg pain Time Seen by Provider: 01/23/20 16:25 Mode of Arrival: Wheelchair Source of Information: Patient Limitations: No Limitations Description of Symptoms (Recalled from ER Triage Doc. by RN): TO ED PER PVT CAR WITH C/O LOWER BACK PAIN RADIATING DOWN TODD LEGS X 1 WEEK. STATES SEEN BY PCP AND HAD XRAYS . 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 Patient was seen and evaluated less than 1 week prior in the emergency department with negative films. She reports severe constant low back pain radiating down the back of both legs. Patient does have history of chronic degenerative disc disease and multiple lumbar fusions. Pain exacerbated with movement. No saddle paresthesias or loss of bowel or bladder. - Related Data Home Medications Medication Instructions Recorded Confirmed ARIPiprazole [Abilify] 30 mg PO DIRECTED 07/23/17 09/22/18 Atorvastatin Calcium [Lipitor 20mg 20 mg PO DIRECTED 07/23/17 09/22/18 Tablet] Insulin Lispro [Humalog Kwikpen 100 unit SQ DIRECTED 07/23/17 09/22/18 U-100] Metformin HCl [Glucophage 500mg 500 mg PO HS 07/23/17 09/22/18 Tablet] Oxycodone HCl [Oxycodone (IR) 15mg 15 mg PO QID 07/23/17 09/22/18 Tab] Pantoprazole Sodium [Protonix 40mg 40 mg PO DAILY 07/23/17 09/22/18 tablet] Temazepam [Restoril 15mg capsule] 15 mg PO DIRECTED 07/23/17 09/22/18 hydrOXYzine pamoate [Vistaril] 25 mg PO DAILY 07/23/17 09/22/18 Lubiprostone [Amitiza] 1 tab PO BID 09/06/17 09/22/18 polyethylene glycoL 3350 [Miralax 17 gm PO DAILY 09/06/17 09/22/18 17gm Packet] methocarbamoL [Robaxin 750mg Tab] 750 mg PO NEEDED PRN 11/29/17 09/22/18 metOLazone [metOLazone 2.5mg 2.5 mg PO DAILY 12/14/17 09/22/18 Tablet] Lactobacillus Acidophilus 2 each PO TID 12/21/17 09/22/18 [Acidophilus] Fluticasone Propionate 1 spray INTRANASAL DAILY 01/23/18 09/22/18 Montelukast Sodium [Singulair] 10 mg PO QAM 01/23/18 09/22/18 Meloxicam [Mobic 7.5mg Tab] 7.5 mg PO
[2020-01-23 16:30] VITALS: BP 167/74; PULSE 104; RESP 18; O2SAT 95
[2020-01-23 16:59] VITALS: BP 167/74; PULSE 104; RESP 18; TEMP 36.7; O2SAT 95
== END 2020-01-23 17:01 | disposition home or self-care (01) ==
PROVIDERS: Emergency Provider Emergency Medicine; PCP Internal Medicine Adolescent Medicine
DX: M54.16 Radiculopathy, lumbar region (principal); I10 Essential (primary) hypertension; E78.5 Hyperlipidemia, unspecified; E11.9 Type 2 diabetes mellitus without complications; K21.9 Gastro-esophageal reflux disease without esophagitis; Z88.0 Allergy status to penicillin; Z88.2 Allergy status to sulfonamides; Z88.8 Allergy status to other drugs, medicaments and biological substances; Z96.642 Presence of left artificial hip joint; Z87.891 Personal history of nicotine dependence
CPT/HCPCS: 96372; 99282

== ENCOUNTER 2020-01-26 00:28 | Emergency (ER) | payer MEDICARE, BC, SELFPAY ==
[2020-01-26 00:27] VITALS: BP 182/86; PULSE 91; RESP 18; TEMP 36.7; O2SAT 95; BMI 33.3
[2020-01-26 00:28] VITALS: BMI 36.0
--- NOTE | 2020-01-26 00:57 | HMH.EDBACK ---
ED Disposition Clinical Impression: Chronic pain syndrome, Acute exacerbation of chronic low back pain Disposition: Home, Self-Care Condition on Discharge: Fair Instructions: DI for Low Back Pain Additional Instructions: see pcp for follow up Referrals: Enzo Meng MD [Primary Care Provider] - - Critical Care Critical Care Time: No Attestation: On 01/26/20, the high probability of a clinically significant, sudden or life threatening deterioration of the following system(s) required my full and direct attention, intervention and personal management. The time I documented below is in addition to time spent performing reported procedures but includes the following listed in this critical care notation. Medical Decision Making - Medical Records Medical records reviewed: Yes: I reviewed the patient's medical records. - Josh Inquiry Pt receiving controlled substance: No Vital Signs: 01/26/20 00:27 Temperature 98.1 F Temperature Source Oral Pulse Rate [Right] 91 H Respiratory Rate 18 Blood Pressure [Right Arm] 182/86 H Blood Pressure Mean [Right Arm] 118 Blood Pressure Source [Right Arm] Automatic Cuff Blood Pressure Position [Right Arm] Sitting 02 Sat by Pulse Oximetry 95 Oxygen Delivery Method Nasal Cannula Oxygen Flow Rate (LPM) 3 - Lab Data Lab results reviewed: Yes: I reviewed the patient's lab results. Orders (Tests/Meds): ED MEDICATIONS Discontinued Medications Generic Name Dose Route Start Last Admin Trade Name Viet PRN Reason Stop Dose Admin Morphine Sulfate 4 mg 01/26/20 00:54 Morphine 4mg/Ml Syringe IM 01/26/20 00:55 ONCE ONE Ondansetron HCl 4 mg 01/26/20 00:54 Zofran 4mg/2ml Vial IM 01/26/20 00:55 ONCE ONE Back Pain HPI - General Chief Complaint: Back Pain/Injury Stated Complaint: Back Pain Time Seen by Provider: 01/26/20 00:40 Mode of Arrival: EMS Source of Information: Patient, Medical Record Limitations: No Limitations Description of Symptoms (Recalled from ER Triage Doc. by RN): PT c/o back pain that goes down into her legs advises she has been dealing with this pain for over a week. She took an oxycodone 1hr [employer] and advises she goes to see her back doc tomorrow - History of Present Illness HPI Narrative: has acute excerbation of back pain Complaint: back pain Onset (ago): day(s) Duration: intermittent Similar Symptoms Previously: Yes Location: lumbar spine Severity: similar to previous episodes Radiation: left leg, right leg Associated symptoms: denies other symptoms - Related Data Home Medications Medication Instructions Recorded Confirmed ARIPiprazole [Abilify] 30 mg PO DIRECTED 07/23/17 09/22/18 Atorvastatin Calcium [Lipitor 20mg 20 mg PO DIRECTED 07/23/17 09/22/18 Tablet] Insulin Lispro [Humalog Kwikpen 100 unit SQ DIRECTED 07/23/17 09/22/18 U-100] Metformin HCl [Glucophage 500mg 500 mg PO HS 07/23/17 09/22/18 Tablet] Oxycodone HCl [Oxycodone (IR) 15mg 15 mg PO QID 07/23/17 09/22/18 Tab] Pantoprazole Sodium [Protonix 40mg 40 mg PO DAILY 07/23/17 09/22/18 tablet] Temazepam [Restoril 15mg capsule] 15 mg PO DIRECTED 07/23/17 09/22/18 hydrOXYzine pamoate [Vistaril] 25 mg PO DAILY 07/23/17 09/22/18 Lubiprostone [Amitiza] 1 tab PO BID 09/06/17 09/22/18 polyethylene glycoL 3350 [Miralax 17 gm PO DAILY 09/06/17 09/22/18 17gm Packet] methocarbamoL [Robaxin 750mg Tab] 750 mg PO NEEDED PRN 11/29/17 09/22/18 metOLazone [metOLazone 2.5mg 2.5 mg PO DAILY 12/14/17 09/22/18 Tablet] Lactobacillus Acidophilus 2 each PO TID 12/21/17 09/22/18 [Acidophilus] Fluticasone Propionate 1 spray INTRANASAL DAILY 01/23/18 09/22/18 Montelukast Sodium [Singulair] 10 mg PO QAM 01/23/18 09/22/18 Meloxicam [Mobic 7.5mg Tab] 7.5 mg PO BID 02/13/18 09/22/18 Previous Rx's Medication Instructions Recorded Promethazine HCl [Phenergan 25mg 25 mg PO Q6HP PRN #10 tab 02/13/18 tab] Lactulose
[2020-01-26 01:35] VITALS: BP 160/70; PULSE 78; RESP 16; TEMP 36.8; O2SAT 98
== END 2020-01-26 01:35 | disposition home or self-care (01) ==
PROVIDERS: Emergency Provider Emergency Medicine; PCP Internal Medicine Adolescent Medicine
DX: M54.5 Low back pain (principal); G89.4 Chronic pain syndrome; E11.9 Type 2 diabetes mellitus without complications; E78.5 Hyperlipidemia, unspecified; I10 Essential (primary) hypertension; K21.9 Gastro-esophageal reflux disease without esophagitis; F41.9 Anxiety disorder, unspecified; Z87.891 Personal history of nicotine dependence; Z79.899 Other long term (current) drug therapy; Z88.0 Allergy status to penicillin; Z88.2 Allergy status to sulfonamides; Z88.8 Allergy status to other drugs, medicaments and biological substances
CPT/HCPCS: 96372; 99281; J2405

== ENCOUNTER 2020-01-29 09:36 | Emergency (ER) | payer MEDICARE, BC, SELFPAY ==
[2020-01-29 09:36] VITALS: BP 135/76; PULSE 103; RESP 18; TEMP 36.8; O2SAT 95; BMI 48.0
--- NOTE | 2020-01-29 09:46 | HMH.EDGENADL ---
ED Disposition Clinical Impression: Lumbar back pain, Acute exacerbation of chronic low back pain Disposition: Home, Self-Care Condition on Discharge: Good Instructions: DI for Low Back Pain Additional Instructions: Follow-up with your PCP in the next 2 to 3 days. If you have any new, changing, worsening, or concerning symptoms, come back to the emergency department. Referrals: PCP,No [Non-Staff] - Time of Disposition: 09:51 - Critical Care Critical Care Time: No Attestation: On 01/29/20, the high probability of a clinically significant, sudden or life threatening deterioration of the following system(s) required my full and direct attention, intervention and personal management. The time I documented below is in addition to time spent performing reported procedures but includes the following listed in this critical care notation. Medical Decision Making - Medical Records Medical records reviewed: Yes: I reviewed the patient's medical records. MR Comment: 69-year-old female with a history of chronic back pain presents the emergency department with worsening lumbar back pain. She arrives the ED hemodynamically stable, with reassuring vitals, and looks well on exam. She denies any change in the symptoms of her back pain, and states that her back pain is been difficult to get control of since she had her pain pump removed. She has no concerning red flag symptoms of spinal compression. She has had no recent trauma, recent imaging is been negative. Given this, do not think imaging needs to be repeated today. She has no other concerning symptoms, will treat with Toradol and reassess. Patient remains well, no other concerning symptoms. She requests dilaudid to be pushed with phenergen. She states that this is what helps her most, I explained that I am uncomfortable with giving this and talked with her and her about close followup with pain doctors for better symptom control. Advised that she follow-up with her PCP and spine doctor. She was given strict return precautions and discharge instructions and verbalized understanding and agreement with the plan. Safe to discharge. - Josh Inquiry Pt receiving controlled substance: No Vital Signs: 01/29/20 09:36 01/29/20 09:52 01/29/20 10:07 Temperature 98.2 F Temperature Source Oral Pulse Rate [Right] 103 H 103 H 100 H Respiratory Rate 18 Blood Pressure [Right Arm] 135/76 135/76 147/68 H Blood Pressure Mean [Right Arm] 95 95 94 Blood Pressure Source [Right Arm] Automatic Cuff Automatic Cuff Blood Pressure Position [Right Arm] Sitting Sitting 02 Sat by Pulse Oximetry 95 95 95 Oxygen Delivery Method Nasal Cannula Nasal Cannula Oxygen Flow Rate (LPM) 3 2 01/29/20 10:31 Temperature Temperature Source Pulse Rate [Right] 100 H Respiratory Rate Blood Pressure [Right Arm] 152/66 H Blood Pressure Mean [Right Arm] 94 Blood Pressure Source [Right Arm] Automatic Cuff Blood Pressure Position [Right Arm] Sitting 02 Sat by Pulse Oximetry 93 L Oxygen Delivery Method Nasal Cannula Oxygen Flow Rate (LPM) 3 Orders (Tests/Meds): ED MEDICATIONS Discontinued Medications Generic Name Dose Route Start Last Admin Trade Name Freq PRN Reason Stop Dose Admin Ketorolac Tromethamine 15 mg 01/29/20 09:46 01/29/20 09:57 Toradol 30mg/Ml Vial IM 01/29/20 09:47 15 mg ONCE ONE Administration Morphine Sulfate 4 mg 01/29/20 09:57 01/29/20 10:07 Morphine 4mg/Ml Syringe IM 01/29/20 09:58 4 mg ONCE ONE Administration Morphine Sulfate 4 mg 01/29/20 10:49 01/29/20 10:53 Morphine 2mg/Ml Syringe IM 01/29/20 10:50 4 mg ONCE ONE Administration Ondansetron HCl 4 mg 01/29/20 09:58 01/29/20 10:07 Zofran 4mg Odt SL 01/29/20 09:59 4 mg ONCE ONE Administration General Adult HPI - General Chief complaint: Back Pain/Injury Stated complaint: back pain Time Seen by Provider: 01/29/20 10:00 Mode of Arrival: EMS Limitations: No Li
--- NOTE | 2020-01-29 09:50 | PC.NURSE ---
Pt keeps yelling out that she is in pain. Explained to pt that we are trying to get her medicated as quickly as possible. pt is asking for her but he has not arrived at this time. Pt understood. Will continue to monitor.
[2020-01-29 09:52] VITALS: BP 135/76; PULSE 103; O2SAT 95
[2020-01-29 10:07] VITALS: BP 147/68; PULSE 100; O2SAT 95
--- NOTE | 2020-01-29 10:07 | PC.NURSE ---
Pt's here at this time.
[2020-01-29 10:31] VITALS: BP 152/66; PULSE 100; O2SAT 93
[2020-01-29 11:44] VITALS: BP 129/73; PULSE 95; RESP 17; TEMP 37.1; O2SAT 99
== END 2020-01-29 11:46 | disposition home or self-care (01) ==
PROVIDERS: Emergency Provider Emergency Medicine; PCP Internal Medicine Adolescent Medicine
DX: M54.5 Low back pain (principal); I10 Essential (primary) hypertension; J44.9 Chronic obstructive pulmonary disease, unspecified; E11.9 Type 2 diabetes mellitus without complications; K21.9 Gastro-esophageal reflux disease without esophagitis; E78.5 Hyperlipidemia, unspecified; Z87.891 Personal history of nicotine dependence; Z96.642 Presence of left artificial hip joint; Z79.899 Other long term (current) drug therapy
CPT/HCPCS: 96374; 96372; 96376; 99282

== ENCOUNTER 2020-02-10 07:38 | Emergency (ER) | payer MEDICARE, BC, SELFPAY ==
[2020-02-10 07:57] VITALS: BP 148/87; PULSE 85; RESP 19; TEMP 37.7; O2SAT 96; BMI 31.3
--- NOTE | 2020-02-10 09:10 | HMH.EDGENADL ---
ED Disposition Clinical Impression: Allergic reaction to drug Qualifiers: Encounter type: initial encounter Qualified Code(s): T78.40XA - Allergy, unspecified, initial encounter Disposition: Home, Self-Care Condition on Discharge: Good Instructions: DI for Skin Abscess Additional Instructions: Primary care physician in the next week. Continue to take Benadryl. Please return with any new or worsening symptoms. Referrals: Enzo Jewell MD [Primary Care Provider] - - Critical Care Critical Care Time: No Attestation: On 02/10/20, the high probability of a clinically significant, sudden or life threatening deterioration of the following system(s) required my full and direct attention, intervention and personal management. The time I documented below is in addition to time spent performing reported procedures but includes the following listed in this critical care notation. Medical Decision Making - Medical Records Medical records reviewed: Yes: I reviewed the patient's medical records. - Josh Inquiry Pt receiving controlled substance: No Vital Signs: 02/10/20 07:57 Temperature 99.9 F H Temperature Source Oral Pulse Rate [Left Radial] 85 Respiratory Rate 19 Blood Pressure [Right Arm] 148/87 H Blood Pressure Mean [Right Arm] 107 Blood Pressure Source [Right Arm] Automatic Cuff Blood Pressure Position [Right Arm] Sitting 02 Sat by Pulse Oximetry 96 Oxygen Delivery Method Nasal Cannula Orders (Tests/Meds): ED MEDICATIONS Discontinued Medications Generic Name Dose Route Start Last Admin Trade Name Freq PRN Reason Stop Dose Admin Dexamethasone 10 mg 02/10/20 09:09 Dexamethasone 1mg/1ml Intensol 10ml Udc (Er) PO 02/10/20 09:10 ONCE ONE Diphenhydramine HCl 25 mg 02/10/20 09:09 Diphenhydramine 25mg Capsule PO 02/10/20 09:10 ONCE ONE Medical Decision Narrative: 69-year-old female with a history of insulin-dependent diabetes and recent diagnosis of bacterial meningitis who presents the emergency department today with a rash. No petechia or purpura. Rash is diffuse, blanching, and itchy. Unlikely infectious. Likely related to amoxicillin. Given Benadryl and dexamethasone. Discussed with the patient that the dexamethasone can increase her blood sugar and to keep a close eye on it. Patient was amenable to this risk. Instructed patient to follow-up with primary care physician in the next week. Return precautions given. Discharged General Adult HPI - General Chief complaint: Skin/Abscess/Foreign Body Stated complaint: itching Time Seen by Provider: 02/10/20 09:00 Mode of Arrival: Ambulatory Limitations: No Limitations Description of Symptoms (Recalled from ER Triage Doc. by RN): c/o rash on her back that started a few days ago - History of Present Illness HPI narrative: 69-year-old female with a history of degenerative arthritis and insulin-dependent diabetes who presents to the emergency department today with an itchy rash. Patient states this started several days ago. Is all over her back and underneath her breasts. Has had Benadryl at home which has been minimally effective. Patient was started on amoxicillin after being diagnosed with bacterial meningitis several weeks ago. No other new symptoms including fevers, chills, shortness of breath, pain of any sort. No other complaints. Onset (ago): day(s) Quality: constant Consistency: constant Relieving factors: none Exacerbating factors: none - Related Data Home Medications Medication Instructions Recorded Confirmed ARIPiprazole [Abilify] 30 mg PO DIRECTED 07/23/17 09/22/18 Atorvastatin Calcium [Lipitor 20mg 20 mg PO DIRECTED 07/23/17 09/22/18 Tablet] Insulin Lispro [Humalog Kwikpen 100 unit SQ DIRECTED 07/23/17 09/22/18 U-100] Metformin HCl [Glucophage 500mg 500 mg PO HS 07/23/17 09/22/18 Tablet] Oxycodone HCl [Oxycodone (IR) 15mg 15 mg PO QID 07/23/17 09/22/18 Tab] Pantopr
[2020-02-10 09:38] VITALS: BP 155/89; PULSE 87; RESP 20; TEMP 36.6; O2SAT 94
== END 2020-02-10 09:40 | disposition home or self-care (01) ==
PROVIDERS: Emergency Provider Emergency Medicine; PCP Internal Medicine Adolescent Medicine
DX: T78.40XA Allergy, unspecified, initial encounter (principal); E11.9 Type 2 diabetes mellitus without complications; F41.9 Anxiety disorder, unspecified; Z87.891 Personal history of nicotine dependence; Z79.899 Other long term (current) drug therapy; Z88.2 Allergy status to sulfonamides; Z88.0 Allergy status to penicillin
CPT/HCPCS: 99281

== ENCOUNTER → 2020-02-16 16:37 | Outpatient (CLI) | payer MEDICARE, BC, SELFPAY ==
--- NOTE | 2020-02-16 16:41 | MR_ITS ---
PROCEDURE: MR LUMBAR SPINE WO CON CLINICAL INDICATION: LOW BACK PAIN Pt. c/o severe lbp and bilateral leg weakness. Pt has had multiple back surgeries. COMPARISON: CR XR LUMBAR SPINE MIN 4V from 01/19/2020 TECHNIQUE: Standard multiplanar multiecho sequences are performed without contrast. 3-D MIP and myelographic images are also rendered and reviewed FINDINGS: There is extensive artifact from lumbar surgery. Stabilizing screws with interconnecting rods are present from the T12-L1 level the L5-S1. This is causing severe artifact. The spinal cord ends at the L1 level. There has been prior posterior fusion with laminectomy from L1-S1. T11-T12: There is a Schmorl's node along the superior endplate of T12. There is increased T2 signal within the Schmorl's node and within the disc space just superior to the Schmorl's node. This signal is somewhat heterogeneous in nature. T12-L1: There is an inter pedicular screw present at that level which appears to enter the disc space on the left at T12. The axial images do not cover this area. There is foraminal narrowing on the left that area. L1-L2: There is degenerative disc disease with severe artifact from the inter pedicular screws. The inter pedicular screw on the right appears to extend into the L1-L2 interspace. There is mild kyphosis at this level. There is mild wedging of L2 which appears chronic. There are some endplate hypertrophic changes at L1-L2 on the right with bilateral foraminal narrowing. L2-L3: Extensive artifact from a disc spacer device. No canal stenosis. L3-L4: Severe degenerative disc disease with a Schmorl's node along the inferior endplate of L3. Extensive artifact. No canal stenosis. L4-5: Extensive artifact from disc spacer device. No canal stenosis. L5-S1: Extensive artifact without canal stenosis. Artifact is also present in the SI joints from prior fusion. The spinal sac is enlarged in the lower lumbar region and sacral area. There are some curvilinear areas of decreased T2 signal within the sacral area of the lumbar sac suggesting small cine GI. IMPRESSION: Status post extensive lumbar surgery with extensive artifact as described above. There is slight reversal of the lumbar lordosis with lumbar spondylosis. Please see above for detailed description at each level. Dictated by: Peter Morales MD 02/18/2020 09:48 Peter Morales MD in [facility] 02/18/2020 09:48
== END ==
PROVIDERS: PCP Internal Medicine Adolescent Medicine; Visit Provider Orthopaedic Surgery
DX: M54.5 Low back pain (principal)
CPT/HCPCS: 72148; 76376

== ENCOUNTER → 2020-03-01 08:58 | Outpatient (CLI) | payer MEDICARE, BC, SELFPAY ==
--- NOTE | 2020-03-01 09:01 | NM_ITS ---
PROCEDURE: NM BONE SCAN WHOLE BODY CLINICAL INDICATION: LUMBAR PAIN COMPARISON: CR KNEE3L KNEE-3 VIEWS-LT from 02/08/2017 CR XR LUMBAR SPINE MIN 4V from 01/19/2020 MR MR LUMBAR SPINE WO CON from 02/16/2020 TECHNIQUE: Dose 26.0 mCi technetium MDP FINDINGS: Anterior and posterior images are obtained of the entire skeleton. Focal increased activity is present involving the right 6th rib anteriorly. There is mild diffuse increased activity in the lumbar spine from L1 to L4 with more focal increased activity at the L5 region. There is also focal and diffuse increased activity involving the lower lumbar spine at the L5 region. Slight increased activity is present at the SI joints. There is also slight increased activity in the shoulders and knees. Photopenic defect in the left knee consistent with prior knee replacement. IMPRESSION: Nonspecific increased activity in the lumbar spine from L1-L4 which may be related to the postsurgical changes. There is more focal increased activity at the L5 area. This is nonspecific and could be due to the prior surgery. Inflammatory infectious or arthritic changes are included in the differential diagnosis. Please correlate with clinical parameters. Focal increased activity in right 6th rib anteriorly also nonspecific.. Dictated by: Peter Morales MD 03/03/2020 15:01 Peter Morales MD in [facility] 03/03/2020 15:01
== END ==
PROVIDERS: PCP Internal Medicine Adolescent Medicine; Visit Provider Orthopaedic Surgery
DX: M54.5 Low back pain (principal)
CPT/HCPCS: 78306; A9503

== ENCOUNTER 2020-05-01 09:33 | Emergency (ER) | payer MEDICARE, BC, SELFPAY ==
[2020-05-01 09:33] VITALS: BP 142/61; BP 143/57; PULSE 78; PULSE 80; RESP 18; RESP 20; TEMP 36.8; O2SAT 93; O2SAT 95; BMI 34.4
--- NOTE | 2020-05-01 09:34 | HMH.EDGENADL ---
ED Disposition Clinical Impression: Low back strain Qualifiers: Encounter type: initial encounter Qualified Code(s): S39.012A - Strain of muscle, fascia and tendon of lower back, initial encounter Disposition: Home, Self-Care Condition on Discharge: Good Instructions: DI for Low Back Pain Prescriptions: methocarbamoL [Robaxin 750mg Tab] 750 mg PO BID PRN #8 tab PRN Reason: Muscle Spasm Transmission Status: Pending to [facility] - Critical Care Critical Care Time: No Attestation: On , the high probability of a clinically significant, sudden or life threatening deterioration of the following system(s) required my full and direct attention, intervention and personal management. The time I documented below is in addition to time spent performing reported procedures but includes the following listed in this critical care notation. Medical Decision Making - Medical Records Medical records reviewed: Yes: I reviewed the patient's medical records. MR Comment: pt recently had pain pump removed which has increased visits for back pain with recent negative imaging. - Josh Inquiry Pt receiving controlled substance: No Vital Signs: 05/01/20 09:33 Temperature 98.2 F Temperature Source Oral Pulse Rate [Left Radial] 78 Respiratory Rate 20 Blood Pressure [Right Arm] 142/61 H Blood Pressure Mean [Right Arm] 88 Blood Pressure Source [Right Arm] Automatic Cuff Blood Pressure Position [Right Arm] Sitting 02 Sat by Pulse Oximetry 93 L Oxygen Delivery Method Nasal Cannula Oxygen Flow Rate (LPM) 2 Orders (Tests/Meds): ED MEDICATIONS Discontinued Medications Generic Name Dose Route Start Last Admin Trade Name Freq PRN Reason Stop Dose Admin Hydromorphone HCl 0.5 mg 05/01/20 09:43 05/01/20 09:47 Hydromorphone 2mg/Ml Syringe IV 05/01/20 09:44 Not Given ONCE ONE Hydromorphone HCl 0.5 mg 05/01/20 09:45 05/01/20 09:58 Hydromorphone 2mg/Ml Syringe IM 05/01/20 09:46 0.5 mg ONCE ONE Administration Ketorolac Tromethamine 15 mg 05/01/20 09:40 05/01/20 09:56 Ketorolac 30mg/Ml Vial IV 05/01/20 09:41 Not Given ONCE ONE Ketorolac Tromethamine 30 mg 05/01/20 09:57 05/01/20 09:58 Ketorolac 30mg/Ml Vial IM 05/01/20 09:58 30 mg ONCE ONE Administration Methocarbamol 750 mg 05/01/20 10:45 Methocarbamol 500mg Tablet PO 05/01/20 10:46 ONCE ONE Medical Decision Narrative: 69-year-old female who presents with lateral back pain after twisting in her chair days ago. On exam patient is well-appearing nontoxic has lateral musculoskeletal back pain with no midline tenderness no concern for compressive syndrome at this time. Review of the documentation demonstrates multiple visits for chronic back pain since having her pain pump removed. She has imaging recently that has no evidence of acute changes and with no acute trauma for this incident this is likely a muscular etiology. She is given Toradol for pain and IM Dilaudid 0.5 mg. Patient the patient's pain is improved and will be discharged home in good condition with appropriate return precautions. General Adult HPI - General Chief complaint: Back Pain/Injury Stated complaint: pain Time Seen by Provider: 05/01/20 09:34 Mode of Arrival: EMS Source of Information: Patient Limitations: Physical Limitations - History of Present Illness HPI narrative: 69 yo F who presents to the ED with left lateral back pain. She is well known to the department and states that she was sitting in her chair 3 days ago when she turned and felt a sharp pain in her left side that has continued intermittently and is now 10/10 this morning. Denies history of fall and states that she has no change in her strength or sensation in her legs and arms. She denies dysuria, fever, chills, and body aches. Pain is worse with rotational movement. Denies saddle anesthesia. MD complaint: lateral back pain Onset (ago): day(s) Location: back, left
[2020-05-01 11:32] VITALS: BP 147/58; PULSE 83; RESP 20; TEMP 36.8; O2SAT 93
== END 2020-05-01 11:33 | disposition home or self-care (01) ==
PROVIDERS: Emergency Provider Student in an Organized Health Care Education/Training Program; PCP Internal Medicine Adolescent Medicine
DX: S39.012A Strain of muscle, fascia and tendon of lower back, initial encounter (principal); K21.9 Gastro-esophageal reflux disease without esophagitis; I10 Essential (primary) hypertension; F41.9 Anxiety disorder, unspecified; E78.5 Hyperlipidemia, unspecified; E11.9 Type 2 diabetes mellitus without complications; Z88.0 Allergy status to penicillin; Z96.642 Presence of left artificial hip joint; Z90.710 Acquired absence of both cervix and uterus; Z87.891 Personal history of nicotine dependence; Z79.899 Other long term (current) drug therapy; Z88.2 Allergy status to sulfonamides
CPT/HCPCS: 96372; 99282

== ENCOUNTER 2020-07-13 10:46 | Emergency (ER) | payer MEDICARE, BC, SELFPAY ==
[2020-07-13 10:47] VITALS: BP 131/68; PULSE 72; RESP 20; TEMP 36.6; O2SAT 93; BMI 36.1
--- NOTE | 2020-07-13 10:54 | XR_ITS ---
PROCEDURE: XR ANKLE RT 2V CLINICAL INDICATION: fall Pain COMPARISON: CR ANKL3 ANKLE-LT-3 VIEWS from 08/03/2013 CR ANKCMRT XR ankle RT min 3V from 01/23/2018 CR ANKCMRT XR ankle RT min 3V from 06/17/2018 FINDINGS: No fracture or dislocation. Generalized osteopenia. No lytic or blastic change. IMPRESSION: No acute findings. Dictated by: Peter Morales MD 07/13/2020 12:30 Peter Morales MD in [facility] 07/13/2020 12:30
--- NOTE | 2020-07-13 10:54 | XR_ITS ---
PROCEDURE: XR CHEST PORTABLE CLINICAL HISTORY: fall Pain COMPARISON: CT CHESTW CT chest w con from 08/21/2017 CR CXR2V XR chest 2V from 07/29/2018 CR XR CHEST PORTABLE from 06/13/2019 CR XR CHEST PORTABLE from 09/08/2019 FINDINGS: There are low lung volumes. Mild cardiomegaly. No failure. There is thickening of the right minor fissure with vascular crowding in the lung bases. There are increased markings in the left lung base laterally. This may be due to an area of infiltrate versus summation density from overlying chest wall. Bilateral shoulder prosthesis is present. IMPRESSION: Possible patchy infiltrate in the left lower lobe laterally Dictated by: Peter Morales MD 07/13/2020 12:29 Peter Morales MD in [facility] 07/13/2020 12:29
--- NOTE | 2020-07-13 10:54 | XR_ITS ---
PROCEDURE: XR PELVIS 1-2V CLINICAL INDICATION: fall Pain COMPARISON: CR PELAP PELVIS AP ONLY from 04/16/2013 TECHNIQUE: XR Pelvis AP View FINDINGS: Exam is very limited with very poor bony resolution with over penetration.. No displaced fracture or hip dislocation is evident. Postsurgical changes are present from prior bilateral sacroiliac fusion and lumbar spine fusion. IMPRESSION: Very limited exam. Recommend repeat at no additional charge. Cannot exclude nondisplaced fractures Dictated by: Peter Morales MD 07/19/2020 08:35 Peter Morales MD in [facility] 07/19/2020 08:35
--- NOTE | 2020-07-13 11:07 | PC.NURSE ---
XRAY AT BEDSIDE
[2020-07-13 11:24] VITALS: BP 127/48; PULSE 72; O2SAT 96
--- NOTE | 2020-07-13 11:40 | HMH.EDGENADL ---
ED Disposition Clinical Impression: Right ankle sprain Qualifiers: Encounter type: initial encounter Involved ligament of ankle: unspecified ligament Qualified Code(s): S93.401A - Sprain of unspecified ligament of right ankle, initial encounter Accidental fall Qualifiers: Encounter type: initial encounter Qualified Code(s): W19.XXXA - Unspecified fall, initial encounter Disposition: Home, Self-Care Condition on Discharge: Good Instructions: How to Prevent Falls Referrals: Enzo Meng MD [Primary Care Provider] - - Critical Care Critical Care Time: No Attestation: On 07/13/20, the high probability of a clinically significant, sudden or life threatening deterioration of the following system(s) required my full and direct attention, intervention and personal management. The time I documented below is in addition to time spent performing reported procedures but includes the following listed in this critical care notation. Medical Decision Making - Medical Records Medical records reviewed: Yes: I reviewed the patient's medical records. - Josh Inquiry Pt receiving controlled substance: Yes Josh was queried for this patient: No Reason not queried -: Emergent pt cond-no time Risks and benefits of using a controlled substance: were discussed with pt by me Vital Signs: 07/13/20 10:47 07/13/20 11:24 07/13/20 12:00 Temperature 97.9 F Temperature Source Oral Pulse Rate [Left Radial] 72 72 73 Respiratory Rate 20 Blood Pressure [Right Arm] 131/68 127/48 L 120/44 L Blood Pressure Mean [Right Arm] 89 74 69 Blood Pressure Source [Right Arm] Automatic Cuff Automatic Cuff Automatic Cuff Blood Pressure Position [Right Arm] Sitting Sitting Sitting 02 Sat by Pulse Oximetry 93 L 96 99 Oxygen Delivery Method Nasal Cannula Nasal Cannula Nasal Cannula Oxygen Flow Rate (LPM) 3 3 Orders (Tests/Meds): ED MEDICATIONS Discontinued Medications Generic Name Dose Route Start Last Admin Trade Name Freq PRN Reason Stop Dose Admin Hydrocodone Bitart/Acetaminophen 1 tab 07/13/20 11:09 07/13/20 11:24 Hydrocodone/Apap 5/325 Mg Tablet PO 07/13/20 11:10 1 tab ONCE ONE Administration ORDERS Category Date Time Status XR pelvis 1-2V Stat Exams 07/13/20 10:54 Taken - Radiology Data #1 Image(s): Chest, Pelvis, Ankle Image Reviewed: Yes I reviewed the patient's radiology results, Yes I reviewed the patient's radiology image, Yes I have reviewed radiologist's interpretation Preliminary Findings: Normal/NAD, No Fracture Seen - Reevaluation(s) Time: 12:38 Reevaluation #1: On reevaluation, patient's pain is improved. There is no fracture. Patient is to follow-up with PCP in 48 hours. Given strict return precautions. Verbalized understanding. Medical Decision Narrative: 69-year-old female presented to the emergency department with accidental fall. Patient is planing of right ankle pain. Work-up initiated. General Adult HPI - General Chief complaint: Fall Stated complaint: fall Time Seen by Provider: 07/13/20 10:50 Mode of Arrival: EMS Limitations: Physical Limitations Description of Symptoms (Recalled from ER Triage Doc. by RN): Pt states that she slid out of the chair, c/o right ankle pain, denies any other injuries - History of Present Illness HPI narrative: This is a 69-year-old female presented to the emergency department with right ankle pain. Patient states that she slid out of her chair earlier today and landed on her right ankle. She is complaining of some right ankle pain. She denies any other injuries. States that the pain is dull and throbbing. Nonradiating. She did not take anything for the pain. She does not have any chest pain or shortness of breath. No abdominal pain or vomiting. No headache or change in vision. No focal weakness. - Related Data Home Medications Medication Instructions Recorded Confirmed ARIPiprazole [Abilify] 30 mg PO DIRECTED
[2020-07-13 12:00] VITALS: BP 120/44; PULSE 73; O2SAT 99
[2020-07-13 14:00] VITALS: BP 99/41; PULSE 71; RESP 18; TEMP 36.6; O2SAT 99
== END 2020-07-13 14:05 | disposition home or self-care (01) ==
PROVIDERS: Emergency Provider Emergency Medicine; PCP Internal Medicine Adolescent Medicine
DX: S93.401A Sprain of unspecified ligament of right ankle, initial encounter (principal); W07.XXXA Fall from chair, initial encounter; Y92.019 Unspecified place in single-family (private) house as the place of occurrence of the external cause; E11.9 Type 2 diabetes mellitus without complications; K21.9 Gastro-esophageal reflux disease without esophagitis; I10 Essential (primary) hypertension; E78.5 Hyperlipidemia, unspecified; F41.9 Anxiety disorder, unspecified; Z79.899 Other long term (current) drug therapy; Z87.891 Personal history of nicotine dependence; Z88.0 Allergy status to penicillin; Z88.2 Allergy status to sulfonamides; Z88.8 Allergy status to other drugs, medicaments and biological substances
CPT/HCPCS: 71045; 72170; 73600; 99282

== ENCOUNTER 2020-08-18 14:16 | Emergency (ER) | payer MEDICARE, BC, SELFPAY ==
[2020-08-18 14:17] VITALS: BP 127/59; PULSE 82; RESP 18; TEMP 37.5; O2SAT 94; BMI 34.9
--- NOTE | 2020-08-18 14:43 | HMH.EDUTC ---
[facility] [place] Disposition Clinical Impression: Viral syndrome COPD (chronic obstructive pulmonary disease) Qualifiers: COPD type: unspecified COPD Qualified Code(s): J44.9 - Chronic obstructive pulmonary disease, unspecified Disposition: Home, Self-Care Condition on Discharge: Good Instructions: DI for Viral Syndrome, Physical Activity for People with COPD Additional Instructions: Drink plenty of fluids. Take tylenol for pain or fever. Return if you begin to have difficulty breathing. Follow up with your regular doctor. GO TO THE ER FOR ANY WORSENING SYMPTOMS Prescriptions: Ondansetron [Zofran 4mg ODT] 4 mg PO Q8HP PRN #20 tab.rapdis PRN Reason: Nausea Transmission Status: Received by [facility] predniSONE [Deltasone 10mg tablet] 10 mg PO BID 3 Days #6 tab Transmission Status: Received by [facility] Azithromycin [Z-David 250mg Tab*] 250 mg PO UD DOSE PK #6 tab Transmission Status: Received by [facility] Referrals: Enzo Meng MD [Primary Care Provider] - Time of Disposition: 14:51 Medical Decision Making - Medical Records Medical records reviewed: No: I reviewed the patient's medical records. - Josh Inquiry Pt receiving controlled substance: No Vital Signs: 08/18/20 14:17 08/18/20 14:59 Temperature 99.5 F 99.5 F Temperature Source Oral Oral Pulse Rate 82 Pulse Rate [Left Brachial] 82 Respiratory Rate 18 18 Blood Pressure 127/59 L Blood Pressure [Left Arm] 127/59 L Blood Pressure Mean [Left Arm] 81 Blood Pressure Source [Left Arm] Automatic Cuff Blood Pressure Position [Left Arm] Sitting 02 Sat by Pulse Oximetry 94 L Oxygen Delivery Method Nasal Cannula Nasal Cannula Oxygen Flow Rate (LPM) 2.[address] [facility] [place] HPI - General Stated complaint: congestion, nausated Time Seen by Provider: 08/18/20 14:43 Mode of Arrival: Wheelchair Source of Information: Patient, Spouse Description of Symptoms (Recalled from Triage Doc. by RN): Pt states that she has had n/v/d since receiving her COVID vaccine on friday. Pt received Arsenio and Arsenio vaccine on friday. Also complains of possibly having diarrhea which per she does have normally. HEENT Symptoms (Recalled from RN notes): No Resp Symptoms (Recalled from RN notes): No Skin Symptoms (Recalled from RN notes): No MS Symptoms (Recalled from RN notes): No Functional Status (Recalled from RN notes): na - History of Present Illness Provider Complaint: She states that for the past 2 days she has had n/v/d. She recieved the arsenio and arsenio immunization for covid-19 2 days ago also. She denies any worsening shortness of breath. - Related Data Home Medications Medication Instructions Recorded Confirmed ARIPiprazole [Abilify] 30 mg PO DIRECTED 07/23/17 07/13/20 Atorvastatin Calcium [Lipitor 20mg 20 mg PO DIRECTED 07/23/17 07/13/20 Tablet] Insulin Lispro [Humalog Kwikpen 100 unit SQ DIRECTED 07/23/17 07/13/20 U-100] Metformin HCl [Glucophage 500mg 500 mg PO HS 07/23/17 07/13/20 Tablet] Oxycodone HCl [Oxycodone (IR) 15mg 15 mg PO QID 07/23/17 07/13/20 Tab] Pantoprazole Sodium [Protonix 40mg 40 mg PO DAILY 07/23/17 07/13/20 tablet] Temazepam [Restoril 15mg capsule] 15 mg PO DIRECTED 07/23/17 07/13/20 hydrOXYzine pamoate [Vistaril] 25 mg PO DAILY 07/23/17 07/13/20 Lubiprostone [Amitiza] 1 tab PO BID 09/06/17 07/13/20 polyethylene glycoL 3350 [Miralax 17 gm PO DAILY 09/06/17 07/13/20 17gm Packet] metOLazone [metOLazone 2.5mg 2.5 mg PO DAILY 12/14/17 07/13/20 Tablet] Lactobacillus Acidophilus 2 each PO TID 12/21/17 07/13/20 [Acidophilus] Fluticasone Propionate 1 spray INTRANASAL DAILY 01/23/18 07/13/20 Montelukast Sodium [Singulair] 10 mg PO QAM 01/23/18 07/13/20 Meloxicam [Mobic 7.5mg Tab] 7.5 mg PO BID 10/05/18 03/04/21 Previous Rx's Medication Instructions Recorded Promethazine HCl [Phenergan 25mg 25 mg PO Q6HP DE
[2020-08-18 14:59] VITALS: BP 127/59; PULSE 82; RESP 18; TEMP 37.5; O2SAT 94
[2020-08-18 21:00] LABS: UTC Strep Screen (Rapid) Negative (Negative)
== END 2020-08-18 15:01 | disposition home or self-care (01) ==
PROVIDERS: Emergency Provider Nurse Practitioner Family; PCP Internal Medicine Adolescent Medicine
DX: B34.9 Viral infection, unspecified (principal); J44.9 Chronic obstructive pulmonary disease, unspecified; E11.9 Type 2 diabetes mellitus without complications; K21.9 Gastro-esophageal reflux disease without esophagitis; I10 Essential (primary) hypertension; E78.5 Hyperlipidemia, unspecified; Z96.642 Presence of left artificial hip joint; Z87.891 Personal history of nicotine dependence; Z79.899 Other long term (current) drug therapy; Z88.0 Allergy status to penicillin; Z88.2 Allergy status to sulfonamides; Z88.8 Allergy status to other drugs, medicaments and biological substances
CPT/HCPCS: G0463; 87880; 99202

== ENCOUNTER → 2020-08-25 12:48 | Outpatient (CLI) | payer MEDICARE, BC, SELFPAY ==
[2020-08-25 13:29] LABS: Basophils % 0.5 % (0.1-2.0); Eosinophils # 0.3 K/mm3 (0.0-0.4); Eosinophils % 3.8 % (0.1-12.0); Hemoglobin 11.4 g/dL (12.2-16.2); Lymphocytes # 1.1 K/mm3 (0.7-4.5); Lymphocytes % 15.4 % (10-50); Mean Corpuscular HGB Conc 30.7 g/dL (31.8-35.4); Mean Corpuscular Hemoglobin 26.3 pg (27.0-31.2); Mean Corpuscular Volume 85.7 fl (81-99); Mean Platelet Volume 7.9 fl (7.4-10.4); Monocytes # 0.3 K/mm3 (0.1-1.0); Monocytes % 4.6 % (1.7-9.3); Neutrophils # 5.4 K/mm3 (1.8-7.8); Neutrophils % 75.7 % (37.0-80.0); Platelet Count 197 K/mm3 (142-424); Red Blood Count 4.32 M/mm3 (4.20-5.40); Red Cell Distribution Width 15.3 % (11.5-17.5); White Blood Count 7.1 K/mm3 (4.8-10.8)
[2020-08-25 14:09] LABS: Hemoglobin A1C 6.8 % (4.0-6.0)
[2020-08-25 14:32] LABS: Chloride 85 mmol/L (98-107); Potassium 4.1 mmoL/L (3.5-5.1); Sodium 135 mmol/L (136-145)
[2020-08-25 14:35] LABS: Alanine Aminotransferase 16 U/L (12-78); Albumin Level 3.7 g/dl (3.5-5.0); Albumin/Globulin Ratio 1.2 (1.1-1.8); Alkaline Phosphatase 82 U/L (38-126); Aspartate Amino Transferase 18 U/L (14-36); Bilirubin,Total 0.4 mg/dl (0.2-1.3); Blood Urea Nitrogen 14 mg/dl (7-17); Cholesterol 135 mg/dl (140-200); Estimated Glomerular Filt Rate 159 ml/min (>60); GFR (African American) 193 ML/MIN (>60); Total Protein,Serum 6.7 g/dl (6.3-8.2); Triglycerides 114 mg/dl (30-150); VLDL Cholesterol 23 mg/dL (0-40)
[2020-08-25 14:36] LABS: Calcium 8.1 mg/dl (8.4-10.2); Chol/HDL Ratio 2.9 (1-3.5); Glucose 209 mg/dl (74-100); HDL Cholesterol 46 mg/dl (40-60)
[2020-08-25 14:47] LABS: Anion Gap 11.1 mEq/L (5-15); Carbon Dioxide 43 mmol/L (22.0-30.0); Direct LDL Cholesterol 61.05 mg/dL (100-129)
== END ==
PROVIDERS: Visit Provider Internal Medicine Adolescent Medicine
DX: E11.65 Type 2 diabetes mellitus with hyperglycemia (principal)
CPT/HCPCS: 36415; 80053; 80061; 83036; 85025

== ENCOUNTER 2020-08-25 16:32 | Emergency (ER) | payer MEDICARE, BC, SELFPAY ==
[2020-08-25 16:33] VITALS: BP 178/82; PULSE 87; RESP 18; TEMP 36.6; O2SAT 99; BMI 40.7
--- NOTE | 2020-08-25 16:46 | HMH.EDGENADL ---
ED Disposition Clinical Impression: Splenomegaly, Hydronephrosis, left, Diverticulosis Pneumonia Qualifiers: Pneumonia type: due to unspecified organism Laterality: left Lung location: lower lobe of lung Qualified Code(s): J18.9 - Pneumonia, unspecified organism Disposition: Home, Self-Care Condition on Discharge: Fair Instructions: DI for Pneumonia -- Adult Additional Instructions: You have been evaluated for abdominal pain, cough, shortness of breath. Diagnosed with left lower lobe pneumonia. Please take Levaquin as prescribed. Use home oxygen. Take Tylenol and Motrin for pain and fever. Follow-up with your primary care doctor in 2 to 3 days for symptom recheck. Return to the emergency department for any new or worsening symptoms, chest pain, shortness of breath, any other concerns. Prescriptions: levoFLOXacin [Levaquin 750mg tablet] 750 mg PO DAILY #5 tab Transmission Status: Pending to [id number] Referrals: Enzo Meng MD [Primary Care Provider] - Time of Disposition: 19:57 - Critical Care Critical Care Time: No Attestation: On 08/25/20, the high probability of a clinically significant, sudden or life threatening deterioration of the following system(s) required my full and direct attention, intervention and personal management. The time I documented below is in addition to time spent performing reported procedures but includes the following listed in this critical care notation. Medical Decision Making - Medical Records Medical records reviewed: Yes: I reviewed the patient's medical records. - Josh Inquiry Pt receiving controlled substance: No Vital Signs: 08/25/20 16:33 Temperature 98 F Temperature Source Oral Pulse Rate [Radial] 87 Respiratory Rate 18 Blood Pressure [Right Arm] 178/82 H Blood Pressure Mean [Right Arm] 114 Blood Pressure Position [Right Arm] Sitting 02 Sat by Pulse Oximetry 99 Oxygen Delivery Method Room Air - Lab Data Lab Results 08/25/20 17:14: WBC 8.0, RBC 4.56, Hgb 11.9 L, Hct 39.2, MCV 85.9, MCH 26.1 L, MCHC 30.4 L, RDW 15.3, Plt Count 245, MPV 7.8, Neut % (Auto) 76.3, Lymph % (Auto) 14.4, [place] % (Auto) 4.9, Eos % (Auto) 4.1, Baso % (Auto) 0.4, Neut # (Auto) 6.1, Lymph # (Auto) 1.1, [place] # (Auto) 0.4, Eos # (Auto) 0.3, Baso # (Auto) 0.0 08/25/20 17:14: Sodium 135 L, Potassium 4.0, Chloride 85 L, Carbon Dioxide 45 H*, Anion Gap 9.0, BUN 13, Creatinine 0.40 L, Estimated Creat Clear 96, Estimated GFR 159, Est GFR ( Amer) 193, Glucose 280 H D, Calcium 8.4, Total Bilirubin 0.3, AST 21, ALT 18, Alkaline Phosphatase 86, Troponin I < 0.01, Total Protein 7.4, Albumin 4.1 D, Globulin 3.3 H, Albumin/Globulin Ratio 1.2, Lipase 71 Result diagrams: 08/25/20 17:14 08/25/20 17:14 Orders (Tests/Meds): ED MEDICATIONS Generic Name Dose Route Start Last Admin Trade Name Freq PRN Reason Stop Dose Admin Sodium Chloride 10 ml 08/25/20 17:56 08/25/20 17:57 Sodium Chloride 0.9% 10ml Syr (Rad Only) IV 09/24/20 17:55 10 ml NEEDED PRN Administration Maintain IV Site Discontinued Medications Generic Name Dose Route Start Last Admin Trade Name Freq PRN Reason Stop Dose Admin Iopamidol 75 ml 08/25/20 17:56 08/25/20 17:57 Iopamidol-370 (76%);100ml Bottle IV 08/25/20 17:57 75 ml ONCE ONE Administration ORDERS Category Date Time Status CT abdomen pelvis w con Stat Cat Scan 08/25/20 16:52 Taken Troponin I Q3H Lab 08/25/20 20:00 Ordered Troponin I Q3H Lab 08/25/20 23:00 Ordered EKG Request [ECG Request by /Nse] Stat Y 08/25/20 16:51 Ordered Medical Decision Narrative: In summary this is a 69-year-old female presenting to the emergency department with epigastric pain. She is clinically stable on arrival. Vital signs within normal limits. Concern for peptic ulcer, duodenal ulcer, pancreatitis. Will obtain CBC, CMP, lipase, CT scan of the abdomen and pelvis. Given her age and risk factors and nonspe
--- NOTE | 2020-08-25 16:52 | CT_ITS ---
PROCEDURE: CT ABDOMEN PELVIS W CON CLINICAL INDICATION: abdominal pain Abdominal pain with nausea COMPARISON: CT CHESTW CT chest w con from 08/21/[address] abdomen pelvis wo con from 11/23/2018 TECHNIQUE: IV Contrast: 75ML Isovue 370 Oral Contrast None Axial images obtained with sagittal and coronal reformats. All CT scans at the facility use one or more dose reduction, viz: automated exposure control, ma/kV adjustment per patient size (including targeted exams where dose is matched to indication, i.e. head), or iterative reconstruction technique. FINDINGS: LOWER THORAX: There is dense consolidation in the left lower lobe posteriorly consistent with pneumonia. Atelectatic changes are present in right lung base. There are coronary artery calcifications and/or stents. ABDOMEN & PELVIS: Prior cholecystectomy. Liver, spleen, adrenal glands, have an unremarkable appearance. There is pancreatic atrophy. Dilated left renal pelvis and calices consistent with left-sided hydronephrosis with UPJ stenosis. There may be a parapelvic renal cyst is well. Artifact is present from extensive surgical hardware within the lumbar spine. The appendix is not clearly delineated. No secondary signs of appendicitis. Bowel gas pattern is nonspecific. No intestinal obstruction or free air. No evidence of diverticulitis. There are scattered colonic diverticula. Post hysterectomy changes. Surgical clips are present in the lower abdominal wall on the left. No abdominal wall hernia. Extensive postsurgical changes of the lumbar spine and pelvis at the SI joints. Posterior fusion hardware present from T12 to the sacrum with fixation screws also in the sacrum iliac area bilaterally. Prior vertebroplasty T7-T8. The lumbar spine is not well delineated secondary to the artifact and imaging technique for the abdomen. IMPRESSION: 1. Left lower lobe pneumonia 2. Chronic left hydronephrosis 3. Other nonacute findings as detailed above. Dictated by: Peter Morales MD 08/26/2020 11:21 Peter Morales MD in [facility] 08/26/2020 11:21
[2020-08-25 17:24] LABS: Basophils % 0.4 % (0.1-2.0); Eosinophils # 0.3 K/mm3 (0.0-0.4); Eosinophils % 4.1 % (0.1-12.0); Hematocrit 39.2 % (37.0-47.0); Hemoglobin 11.9 g/dL (12.2-16.2); Lymphocytes # 1.1 K/mm3 (0.7-4.5); Lymphocytes % 14.4 % (10-50); Mean Corpuscular HGB Conc 30.4 g/dL (31.8-35.4); Mean Corpuscular Hemoglobin 26.1 pg (27.0-31.2); Mean Corpuscular Volume 85.9 fl (81-99); Mean Platelet Volume 7.8 fl (7.4-10.4); Monocytes # 0.4 K/mm3 (0.1-1.0); Monocytes % 4.9 % (1.7-9.3); Neutrophils # 6.1 K/mm3 (1.8-7.8); Neutrophils % 76.3 % (37.0-80.0); Platelet Count 245 K/mm3 (142-424); Red Blood Count 4.56 M/mm3 (4.20-5.40); Red Cell Distribution Width 15.3 % (11.5-17.5)
[2020-08-25 17:30] LABS: Chloride 85 mmol/L (98-107); Sodium 135 mmol/L (136-145)
[2020-08-25 17:32] LABS: Blood Urea Nitrogen 13 mg/dl (7-17); Creatinine Clearance Estimated 96 mL/min (50-200); Estimated Glomerular Filt Rate 159 ml/min (>60); GFR (African American) 193 ML/MIN (>60)
[2020-08-25 17:33] LABS: Alanine Aminotransferase 18 U/L (12-78); Albumin Level 4.1 g/dl (3.5-5.0); Albumin/Globulin Ratio 1.2 (1.1-1.8); Alkaline Phosphatase 86 U/L (38-126); Aspartate Amino Transferase 21 U/L (14-36); Bilirubin,Total 0.3 mg/dl (0.2-1.3); Calcium 8.4 mg/dl (8.4-10.2); Globulin 3.3 g/dL (1.3-3.2); Glucose 280 mg/dl (74-100); Lipase 71 U/L (23-300); Total Protein,Serum 7.4 g/dl (6.3-8.2)
[2020-08-25 17:42] LABS: Carbon Dioxide 45 mmol/L (22.0-30.0)
[2020-08-25 17:49] LABS: Troponin I < 0.01 ng/ml (0.00-0.034)
[2020-08-25 18:00] VITALS: BP 127/62; PULSE 66; RESP 22; TEMP 36.8; O2SAT 97
== END 2020-08-25 20:12 | disposition home or self-care (01) ==
PROVIDERS: Emergency Provider Emergency Medicine; PCP Internal Medicine Adolescent Medicine
DX: R16.1 Splenomegaly, not elsewhere classified (principal); N13.30 Unspecified hydronephrosis; K57.90 Diverticulosis of intestine, part unspecified, without perforation or abscess without bleeding; J18.9 Pneumonia, unspecified organism; E11.65 Type 2 diabetes mellitus with hyperglycemia; I10 Essential (primary) hypertension; E78.5 Hyperlipidemia, unspecified; K21.9 Gastro-esophageal reflux disease without esophagitis; Z79.899 Other long term (current) drug therapy; Z96.642 Presence of left artificial hip joint; F41.9 Anxiety disorder, unspecified; Z87.891 Personal history of nicotine dependence; Z88.0 Allergy status to penicillin; Z88.2 Allergy status to sulfonamides; Z88.8 Allergy status to other drugs, medicaments and biological substances
CPT/HCPCS: 36415; 74177; 80053; 80061; 83036; 83690; 84484; 85025; 99282; Q9967

== ENCOUNTER → 2020-09-20 12:42 | Outpatient (CLI) | payer MEDICARE, BC, SELFPAY ==
[2020-09-20 13:10] LABS: Basophils # 0.1 K/mm3 (0-0.2); Basophils % 0.6 % (0.1-2.0); Eosinophils # 0.2 K/mm3 (0.0-0.4); Eosinophils % 2.1 % (0.1-12.0); Hematocrit 37.8 % (37.0-47.0); Hemoglobin 11.9 g/dL (12.2-16.2); Lymphocytes # 1.1 K/mm3 (0.7-4.5); Lymphocytes % 9.3 % (10-50); Mean Corpuscular HGB Conc 31.4 g/dL (31.8-35.4); Mean Corpuscular Hemoglobin 26.4 pg (27.0-31.2); Mean Corpuscular Volume 84.1 fl (81-99); Mean Platelet Volume 8.7 fl (7.4-10.4); Monocytes # 0.5 K/mm3 (0.1-1.0); Neutrophils # 9.7 K/mm3 (1.8-7.8); Platelet Count 239 K/mm3 (142-424); Red Blood Count 4.49 M/mm3 (4.20-5.40); Red Cell Distribution Width 15.2 % (11.5-17.5); White Blood Count 11.5 K/mm3 (4.8-10.8)
[2020-09-20 13:36] LABS: Potassium 3.6 mmoL/L (3.5-5.1); Sodium 138 mmol/L (136-145)
[2020-09-20 13:38] LABS: Alanine Aminotransferase 21 U/L (12-78); Alkaline Phosphatase 109 U/L (38-126); Aspartate Amino Transferase 27 U/L (14-36); Bilirubin,Total 0.7 mg/dl (0.2-1.3); Blood Urea Nitrogen 21 mg/dl (7-17); Estimated Glomerular Filt Rate 123 ml/min (>60); GFR (African American) 148 ML/MIN (>60)
[2020-09-20 13:39] LABS: Albumin Level 3.9 g/dl (3.5-5.0); Albumin/Globulin Ratio 1.3 (1.1-1.8); Globulin 3.1 g/dL (1.3-3.2); Glucose 157 mg/dl (74-100)
[2020-09-20 15:13] LABS: Chloride 79 mmol/L (98-107)
[2020-09-20 15:14] LABS: Anion Gap 12.6 mEq/L (5-15); Carbon Dioxide 50 mmol/L (22.0-30.0)
[2020-09-20 15:15] LABS: Calcium 6.9 mg/dl (8.4-10.2)
== END ==
PROVIDERS: Visit Provider Internal Medicine Adolescent Medicine
DX: K92.1 Melena (principal)
CPT/HCPCS: 80053; 85025

== ENCOUNTER 2020-10-08 09:53 | Emergency (ER) | payer MEDICARE, BC, SELFPAY ==
[2020-10-08 10:20] VITALS: BP 142/81; PULSE 89; RESP 21; TEMP 36.9; O2SAT 93; BMI 29.5
--- NOTE | 2020-10-08 10:44 | HMH.EDUTC ---
[facility] Disposition Clinical Impression: Nausea Disposition: Home, Self-Care Condition on Discharge: Good Instructions: DI for Thrush, DI for Nausea -- Adult, Ondansetron, Nystatin Additional Instructions: Drink extra fluids with and between meals. If you have difficulty drinking, try very small amounts of water or suck on ice chips. ? Avoid fruit juices, as these do not replace minerals and can actually increase diarrhea. ? Children and adults can use sports drinks to replenish electrolytes. Younger children and infants should use products formulated for children, like oral rehydration solutions. ? Eat food in small amounts and let your stomach recover. ? Get lots of rest. You may feel tired or weak. ? No greasy or fried foods for the next 24-48 hours BRAT diet Bananas Rice Apples and [place] ? Make sure to drink plenty of liquids ? Return if needed ? Straight to ER if any life threatening symptoms ? Zofran as prescribed ? Follow up with family doctor in the next 48-72 hours if no improvement or any worsening of symptoms Use oral nystatin as prescribed, 4ml in mouth swish and spit Follow up with Family Doctor if no improvement Prescriptions: Nystatin [Nystatin Susp 500,000 Units/5mL Udc] 4 ml PO QID 7 Days #120 udc Transmission Status: Received by [facility] #[id number] Referrals: Enzo Meng MD [Primary Care Provider] - As needed Time of Disposition: 10:56 Medical Decision Making - Josh Inquiry Pt receiving controlled substance: No Josh was queried for this patient: No Vital Signs: 10/08/20 10:20 10/08/20 11:00 Temperature 98.4 F 98.4 F Temperature Source Oral Pulse Rate 89 Pulse Rate [Right Brachial] 89 Respiratory Rate 21 21 Blood Pressure 142/81 H Blood Pressure [Right Arm] 142/81 H Blood Pressure Mean [Right Arm] 101 Blood Pressure Source [Right Arm] Automatic Cuff Blood Pressure Position [Right Arm] Sitting 02 Sat by Pulse Oximetry 93 L Oxygen Delivery Method Nasal Cannula Nasal Cannula Oxygen Flow Rate (LPM) 3 3 [facility] HPI - General Stated complaint: nausea Time Seen by Provider: 10/08/20 10:44 Mode of Arrival: Ambulatory Source of Information: Patient, Spouse Limitations: No Limitations Description of Symptoms (Recalled from Triage Doc. by RN): PATIENT C/O NAUSEA, A BAD TASTE IN MOUTH, AND HER TONGUE FEELS RAW/FUNNY X 2 DAYS. DENIES VOMITING OR DIARRHEA HEENT Symptoms (Recalled from RN notes): Yes Resp Symptoms (Recalled from RN notes): No Skin Symptoms (Recalled from RN notes): No MS Symptoms (Recalled from RN notes): No Functional Status (Recalled from RN notes): WNL - History of Present Illness Provider Complaint: Patient states that she has been having nausea for several days but not having any vomiting states that she has been drinking ok but not eating very much States that her PCP sent her in some Zofran and she has been taking it but still having nausea on and off State that her tongue feels rough and raw and has a bad taste in her mouth states that she eat a egg sandwhich ealier today and has not vomited it up - Related Data Home Medications Medication Instructions Recorded Confirmed ARIPiprazole [Abilify] 30 mg PO DIRECTED 07/23/17 10/04/20 Atorvastatin Calcium [Lipitor 20mg 20 mg PO DIRECTED 07/23/17 10/04/20 Tablet] Insulin Lispro [Humalog Kwikpen 100 unit SQ DIRECTED 07/23/17 10/04/20 U-100] Metformin HCl [Glucophage 500mg 500 mg PO HS 07/23/17 10/04/20 Tablet] Pantoprazole Sodium [Protonix 40mg 40 mg PO DAILY 07/23/17 10/04/20 tablet] metOLazone [metOLazone 2.5mg 2.5 mg PO DAILY 12/14/17 10/04/20 Tablet] buspirone 5 mg tablet 5 mg PO tab 10/04/20 10/04/20 carvedilol 6.25 mg tablet 6.25 mg PO tab 10/04/20 10/04/20 diclofenac sodium 1 % topical gel 2 g TOPICAL g 10/04/20 10/04/20 furosemide 80 mg tablet 80 mg PO Q OTHER DAY 10/04/20 10/04/20 linaclotide 290 mcg capsule 290 mcg PO cap 10/04/20 10/04/20 metformin 1,000 mg
[2020-10-08 11:00] VITALS: BP 142/81; PULSE 89; RESP 21; TEMP 36.9; O2SAT 93
== END 2020-10-08 11:03 | disposition home or self-care (01) ==
PROVIDERS: Emergency Provider Nurse Practitioner; PCP Internal Medicine Adolescent Medicine
DX: R11.0 Nausea (principal); E11.9 Type 2 diabetes mellitus without complications; E78.5 Hyperlipidemia, unspecified; I10 Essential (primary) hypertension; K21.9 Gastro-esophageal reflux disease without esophagitis; Z87.891 Personal history of nicotine dependence; Z79.4 Long term (current) use of insulin; Z79.84 Long term (current) use of oral hypoglycemic drugs; Z88.0 Allergy status to penicillin; Z88.2 Allergy status to sulfonamides; Z79.899 Other long term (current) drug therapy
CPT/HCPCS: G0463; 99202

== ENCOUNTER 2020-10-09 14:16 | Emergency (ER) | payer MEDICARE, BC, SELFPAY ==
[2020-10-09 14:17] VITALS: BP 97/42; PULSE 78; RESP 16; TEMP 37; O2SAT 98; BMI 32.8
--- NOTE | 2020-10-09 14:26 | XR_ITS ---
PROCEDURE INFORMATION: Exam: XR Left Knee Exam date and time: 10/09/2020 2:26 PM Age: 70 years old Clinical indication: Injury or trauma; Blunt trauma; Left; Injury date: 10-09-20; Injury details: Fall, pain below knee; Prior surgery; Surgery date: 6+ months; Surgery type: Knee replacement TECHNIQUE: Imaging protocol: XR Left knee. Views: 3 views. COMPARISON: CR [id number] 02/08/2017 3:21 PM FINDINGS: Bones/joints: There is an acute fracture of the proximal tibia just inferior to the tibial component of the knee replacement. Fracture of the proximal fibula. There is no evidence of joint malalignment or dislocation. Status post total knee replacement. Soft tissues: Soft tissue swelling is present. IMPRESSION: 1. There is an acute fracture of the proximal tibia just inferior to the tibial component of the knee replacement. 2. Fracture of the proximal fibula. 3. Soft tissue swelling is present. 4. No evidence of acute dislocation. 5. Status post total knee replacement.
--- NOTE | 2020-10-09 14:27 | XR_ITS ---
PROCEDURE INFORMATION: Exam: XR Left Tibia and Fibula Exam date and time: 10/09/2020 2:27 PM Age: 70 years old Clinical indication: Injury or trauma; Blunt trauma; Left; Injury date: 10-09-20; Injury details: Fall, pain below knee; Prior surgery; Surgery date: 6+ months; Surgery type: Knee replacement TECHNIQUE: Imaging protocol: XR Left tibia and fibula. Views: 2 views. COMPARISON: CTAELB [id number] BILATERAL 04/29/2017 9:18 AM FINDINGS: Bones/joints: Status post total knee replacement. Fracture of the proximal tibia is present just inferior to the tibial component of the knee replacement. Fracture of the proximal fibula is present. Soft tissues: Soft tissue swelling is present. IMPRESSION: 1. Fracture of the proximal tibia is present just inferior to the tibial component of the knee replacement. 2. Fracture of the proximal fibula is present. 3. Soft tissue swelling is present.
--- NOTE | 2020-10-09 14:27 | XR_ITS ---
PROCEDURE INFORMATION: Exam: XR Left Ankle Exam date and time: 10/09/2020 2:27 PM Age: 70 years old Clinical indication: Injury or trauma; Blunt trauma; Ankle; Left; Injury date: 10-09-20; Injury details: Fall, pain below knee TECHNIQUE: Imaging protocol: XR Left ankle. Views: 1 or 2 views. COMPARISON: CTAELB [id number] BILATERAL 04/29/2017 9:18 AM FINDINGS: Bones/joints: Bones are osteopenic. There is no evidence of acute fracture. There is no evidence of joint malalignment or dislocation. Calcaneal spur. Soft tissues: Normal. IMPRESSION: 1. No evidence of acute fracture. 2. No evidence of acute dislocation.
--- NOTE | 2020-10-09 14:27 | XR_ITS ---
PROCEDURE INFORMATION: Exam: XR Left Femur Exam date and time: 10/09/2020 2:27 PM Age: 70 years old Clinical indication: Injury or trauma; Blunt trauma; Thigh or upper leg; Left; Injury date: 10-09-20; Injury details: Fall, pain below knee TECHNIQUE: Imaging protocol: XR Left femur. Views: 2 views. COMPARISON: CTAELB [id number] BILATERAL 04/29/2017 9:18 AM FINDINGS: Bones/joints: Status post total knee replacement. No evidence of femoral fracture. Soft tissues: Soft tissue swelling of the knee is noted. IMPRESSION: 1. No evidence of femoral fracture. 2. Soft tissue swelling of the knee is noted.
--- NOTE | 2020-10-09 14:28 | HMH.EDFALL ---
ED Disposition Clinical Impression: Tibia/fibula fracture Qualifiers: Encounter type: initial encounter Fracture type: closed Laterality: left Qualified Code(s): S82.202A - Unspecified fracture of shaft of left tibia, initial encounter for closed fracture Disposition: Home, Self-Care Condition on Discharge: Fair Instructions: DI for Shinbone Fracture, Fibula Shaft Fracture Additional Instructions: You have been evaluated for tibia and fibula fracture. Please follow-up with Dr. Willett of [facility] [place] [address] tomorrow. Call in the morning for your appointment. Take Tylenol Motrin for pain. [place] for extreme pain. Elevate your leg. Leave splint in place. Return to the emergency department for any new or worsening symptoms, pain, other concerns. Referrals: Enzo Meng MD [Primary Care Provider] - Time of Disposition: 16:22 - Critical Care Critical Care Time: No Attestation: On 10/09/20, the high probability of a clinically significant, sudden or life threatening deterioration of the following system(s) required my full and direct attention, intervention and personal management. The time I documented below is in addition to time spent performing reported procedures but includes the following listed in this critical care notation. Medical Decision Making - Medical Records Medical records reviewed: Yes: I reviewed the patient's medical records. - Josh Inquiry Pt receiving controlled substance: No Vital Signs: 10/09/20 14:17 10/09/20 16:53 Temperature 98.6 F Temperature Source Oral Pulse Rate 90 Pulse Rate [Radial] 78 Respiratory Rate 16 Blood Pressure 123/63 Blood Pressure [Right Arm] 97/42 L Blood Pressure Mean [Right Arm] 60 Blood Pressure Position Sitting Blood Pressure Position [Right Arm] Sitting 02 Sat by Pulse Oximetry 98 Oxygen Delivery Method Room Air - Lab Data Lab Results 10/09/20 16:53: POC Glucose 134 H Orders (Tests/Meds): ED MEDICATIONS Discontinued Medications Generic Name Dose Route Start Last Admin Trade Name Freq PRN Reason Stop Dose Admin Hydrocodone Bitart/Acetaminophen 1 tab 10/09/20 15:17 10/09/20 15:37 Hydrocodone/Apap 5/325 Mg Tablet PO 10/09/20 15:18 1 tab ONCE ONE Administration Tetanus/Reduced Diphtheria/Acell Pertussis 0.5 ml 05/31/21 14:28 10/09/20 16:32 Tet/Diphth/Pert-Adult 0.5ml Syringe IM 10/09/20 14:29 0.5 ml .ONCE ONE Administration - CT Data CT Scan: Other Time Received: 17:[address] Reviewed: Yes: I have reviewed the patient's CT results, I discussed the CT results w/the radiologist, I have viewed the radiologist's interpretation Findings Narrative: IMPRESSION: 1. There is a fracture involving the proximal tibia and the fracture involves the tibial component of the knee replacement. 2. There appears to be some loosening of the tibial component of the knee replacement. 3. Soft tissue swelling is present. 4. Fracture of the proximal fibula is present. Medical Decision Narrative: In summary this is a 70-year-old female presenting to the emergency department with traumatic left knee pain. Clinically stable on arrival. She has tenderness with flexion and extension. No obvious ligamentous laxity. Will obtain x-rays of the left femur, knee, tib-fib, ankle. Tetanus updated. Laceration irrigated and repaired. Procedure well-tolerated. X-rays of the left tib-fib show a spiral tibia fracture and a proximal fibula fracture. Does not appear to involve the hardware. Will obtain CT scan to assess for tibial plateau fracture. Patient's orthopedist is Dr. [facility]. He did her total knee replacement on the left. [facility] consulted. Dr. Willett will graciously see the patient in clinic tomorrow for follow-up. CT scan showed that the tibia fracture likely involves t
--- NOTE | 2020-10-09 15:28 | PC.NURSE ---
waiting tax commissioner back from Dr. Willett who is tax commissioner for [facility] (paged through [facility])
--- NOTE | 2020-10-09 15:49 | CT_ITS ---
PROCEDURE INFORMATION: Exam: CT Left Lower Extremity Without Contrast, Knee Exam date and time: 10/09/2020 3:49 PM Age: 70 years old Clinical indication: Injury or trauma; Blunt trauma; Left; Injury date: 10-09-20; Injury details: Fall, C/O pain below knee; Prior surgery; Surgery date: 6+ months; Surgery type: Tkr; Additional info: Knee fracture TECHNIQUE: Imaging protocol: CT of the Left lower extremity without contrast was performed. Exam focused on the knee. 3D rendering (Not supervised by radiologist): MIP and/or 3D reconstructed images were created by the technologist. Radiation optimization: All CT scans at this facility use at least one of these dose optimization techniques: automated exposure control; mA and/or kV adjustment per patient size (includes targeted exams where dose is matched to clinical indication); or iterative reconstruction. COMPARISON: CTAELB [id number] BILATERAL 04/29/2017 9:18 AM FINDINGS: Bones/joints: There is a fracture involving the proximal tibia and the fracture involves the tibial component of the knee replacement. There appears to be some loosening of the tibial component of the knee replacement. Fracture of the proximal fibula is present. Soft tissues: Soft tissue swelling is present. IMPRESSION: 1. There is a fracture involving the proximal tibia and the fracture involves the tibial component of the knee replacement. 2. There appears to be some loosening of the tibial component of the knee replacement. 3. Soft tissue swelling is present. 4. Fracture of the proximal fibula is present.
--- NOTE | 2020-10-09 15:50 | PC.NURSE ---
Called for CT of patients knee.
--- NOTE | 2020-10-09 16:03 | PC.NURSE ---
Dr torres on with Dr Willett from [facility]
[2020-10-09 16:53] VITALS: BP 123/63; PULSE 90
--- NOTE | 2020-10-09 16:53 | PC.NURSE ---
PT C/O DIZZINESS BLOOD SUGAR 134
[2020-10-09 17:00] VITALS: BP 125/63; PULSE 88; RESP 18; O2SAT 98
[2020-10-09 17:00] LABS: POC Glucose,Bedside 134 (70-110)
--- NOTE | 2020-10-09 17:07 | PC.NURSE ---
Called [place] [facility], to request to speak Dr Willett again.
[2020-10-09 17:30] VITALS: BP 131/68; PULSE 90; RESP 18; O2SAT 98
--- NOTE | 2020-10-09 17:30 | PC.NURSE ---
Dr Casarez talked to Dr Willett again about break involving prostesis
[2020-10-09 19:07] VITALS: BP 123/74; PULSE 84; RESP 16; TEMP 36.6; O2SAT 98
== END 2020-10-09 19:09 | disposition home or self-care (01) ==
PROVIDERS: Emergency Provider Emergency Medicine; PCP Internal Medicine Adolescent Medicine
DX: S82.202A Unspecified fracture of shaft of left tibia, initial encounter for closed fracture (principal); S91.012A Laceration without foreign body, left ankle, initial encounter; W01.198A Fall on same level from slipping, tripping and stumbling with subsequent striking against other object, initial encounter; Z23 Encounter for immunization; Y92.89 Other specified places as the place of occurrence of the external cause; E11.9 Type 2 diabetes mellitus without complications; K21.9 Gastro-esophageal reflux disease without esophagitis; I10 Essential (primary) hypertension; F41.9 Anxiety disorder, unspecified; E78.5 Hyperlipidemia, unspecified; Z87.891 Personal history of nicotine dependence; Z88.0 Allergy status to penicillin; Z88.2 Allergy status to sulfonamides
CPT/HCPCS: 12002; 73552; 73562; 73590; 73600; 73700; 82962; 90715; 99282

== ENCOUNTER → 2020-11-06 15:18 | Outpatient (CLI) | payer MEDICARE, BC, SELFPAY ==
[2020-11-06 15:24] LABS: Microscopic, Urine URINE MICROSCOPIC (MICROSCOPIC)
[2020-11-06 16:08] LABS: Appearance,Urine CLEAR (Clear); Bilirubin,Urine Negative (Negative); Blood, Urine 3+ (Negative); Color,Urine YELLOW (Yellow); Glucose,Urine (UA) Negative (Negative); Ketones,Urine Negative (Negative); Leukocyte Esterase,Urine Negative (Negative); Nitrate,Urine POSITIVE (Negative); PH,Urine 6.5 (5.0-8.5); Protein,Urine TRACE (Negative); Specific Gravity, Urine 1.025 (1.005-1.030)
[2020-11-06 16:32] LABS: Bacteria,Urine 1+ /lpf; Squamous Epithelial Cell,Urine Occasional #/hpf (0-5)
== END ==
PROVIDERS: Visit Provider Internal Medicine Adolescent Medicine
DX: R30.0 Dysuria (principal)
CPT/HCPCS: 81001; 87086; 87088; 87186